=== PATIENT | female | born 1950 | race African-American/Black ===

== ENCOUNTER 2017-10-08 19:19 | Inpatient (IN) ==
[2017-10-08] MEDS ORDERED: 0.9 % Sodium Chloride 500 ML IVC ONE (19:28)
[2017-10-08] MEDS ORDERED: Nitroglycerin 0.4 MG TAB.SUBL SL ONE (19:28)
[2017-10-08] MEDS ORDERED: Isovue-370 500 ML INFUS..BTL IV ONE (19:29)
--- NOTE | 2017-10-08 19:34 | Emergency Department Note ---
Disposition Clinical Impression: Elevated troponin Chest pain Qualifiers: Chest pain type: unspecified Qualified Code(s): R07.9 - Chest pain, unspecified Back pain Qualifiers: Back pain location: thoracic back pain Chronicity: unspecified Back pain laterality: midline Qualified Code(s): M54.6 - Pain in thoracic spine Disposition: Admitted As Inpatient Condition: Fair General Adult HPI - General Chief complaint: ED Back Pain/Injury Stated complaint: Back Pain Time Seen by Provider: 10/08/17 19:23 Source: EMS Mode of arrival: ambulatory Limitations: no limitations Nursing Notes Reviewed: Yes Vital Signs Reviewed: Yes - History of Present Illness HPI Narrative: 66-year-old female history of hypertension, diabetes, ACS with stents in the past presents for evaluation of back pain. Patient states he has had back pain intermittently over the past couple weeks. Patient's also had intermittent anterior chest pain. States that the pain is worse with exertion. Patient was prompted to come to the ER tonight when her back pain did not improve. Notes it to be a dull pressure pain in her back. Denies any radiation of pain. Patient did state that she had some right arm pain yesterday. Reports some dyspnea and nonproductive cough. No fevers. Patient did have diaphoresis yesterday that she attributed to her blood sugar. Denies any abdominal pain. Reports that she takes a baby aspirin. Patient does state that she has has had some swelling in lower legs that is worse on the left than the right. Denies any recent travel. No history of DVTs or PEs. Pain Scale: 9 - Related Data Home Medications Medication Instructions Recorded Confirmed Atenolol 03/15/15 03/15/15 Levothyroxine 03/15/15 Metformin 03/15/15 Oxybutynin 03/15/15 Paroxetine 03/15/15 Previous Rx's Medication Instructions Recorded Insulin NPH/REG 70/30 (HUMAN) 20 unit SQ BIDAC #30 [id number] 04/06/15 [Humulin 70/30 Vial] Azithromycin [Azithromycin 6-Tab 250 mg PO PER PKG DI #6 tab 08/27/17 Pack] Benzonatate [Tessalon] 200 mg PO BID 7 Days #14 capsule 08/27/17 Fluticasone Propionate Nasal 50 mcg NS BID 7 Days #1 bottle 08/27/17 [Flonase] Allergies Allergy/AdvReac Type Severity Reaction Status Date / Time No Known Allergies Allergy Verified 03/15/15 18:18 All systems ED: reviewed and negative except as stated. Constitutional: Denies: fever Cardiovascular: Reports: chest pain Respiratory: Reports: cough, dyspnea Gastrointestinal: Denies: abdominal pain, nausea, vomiting Musculoskeletal: Reports: back pain Past Medical History - Past Medical History Source: patient Medical history: Reports: coronary artery disease, diabetes, hypertension, thyroid disease Surgical history: Reports: angioplasty/stent (stent x1 more than 5 years ago) Psychiatric history: Reports: no psych history MEASURING CLERK history: Reports: no MEASURING CLERK history - Social History Smoking Status: Never smoker Smokeless Tobacco Status: No Alcohol use: Reports: none Drug use: Reports: none Physical Exam - General Limitations: no limitations General appearance: alert, in no apparent distress, obese - Head Head exam: atraumatic, normocephalic, normal inspection - Eye Eye exam: Present: normal appearance, EOMI - ENT ENT exam: normal exam, mucous membranes moist - Neck Neck exam: Present: normal inspection, trachea midline - Chest Chest inspection: Present: normal inspection, symmetric chest wall rise - Respiratory Respiratory exam: Present: normal lung sounds bilaterally. Absent: respiratory distress - Cardiovascular Cardiovascular exam: Present: normal rhythm, tachycardia. Absent: systolic murmur - Abdominal Exam Abdominal exam: Present: soft, Non-Tender - Extremities Exam Extremities exam: Present: normal inspection, pedal edema (Trace) - Expanded Lower Extremity Exam Neurovascular/Tendon exam: Present: normal capillary refill. Absent: pulse deficit, motor deficit, sensory deficit - Back Exam Back exam: Present: normal inspection - Neurological Exam Neurological exam: Present: alert, oriented X3, CN II-XII intact - Skin Skin exam: Present: warm, dry, intact, normal color Course Course Narrative: Patient seen and examined. Patient will get basic cardiopulmonary screening evaluation. Given the patient's back pain as well as elevated blood pressure patient is a CT angiogram of the chest to evaluate aortic pathology. Patient will likely require admission given her history of ACS. - Reevaluation(s) Reevaluation #1: Patient states that her pain has improved. Patient received one sublingual nitroglycerin. Patient's blood pressure did decrease to a systolic pressure in the 140s. Patient's resting comfortably. Time: 20:12 Reevaluation #2: Patient's troponin came back elevated. Awaiting patient's CT Amparo chest x- ray there is no dissection or aortic pathology prior to initiating anticoagulation. Time: 20:18 - Consultations Consultation #1: Discussed the case with cardiology, Dr. Benavidez who agrees with plan of care and anticoagulation. Consult was placed. Time: 21:28 Vital Signs Temperature 99.2 F 10/08/17 19:22 Pulse Rate 102 10/08/17 19:22 Respiratory Rate 20 10/08/17 19:22 Blood Pressure 205/110 10/08/17 19:22 O2 Sat by Pulse Oximetry 93 10/08/17 19:22 Temperature 99.2 F 10/08/17 19:22 Pulse Rate 92 10/08/17 21:22 Respiratory Rate 20 10/08/17 21:22 Blood Pressure 198/83 10/08/17 21:22 O2 Sat by Pulse Oximetry 95 10/08/17 21:22 Oxygen Delivery Oxygen Delivery Room Air Medical Decision Making - MDM Narrative Medical decision making narrative: 66 show female history of hypertension, diabetes and ACS presents for evaluation of chest pain and back pain. Patient had a concerning history. Patient does have risk factors. Patient was hypertensive on exam and was given one nitroglycerin which improved her blood pressure as well as her pain. Patient's pain on initial arrival was in her back. Given the patient's history of back pain patient had a CT angios of the chest which showed notes a dissection or PE. Patient EKG shows no acute changes. Patient was heparinized that she has no concrete indications to heparin. Patient is also given aspirin. Patient's pain was controlled and the ED. Patient be admitted to hospital service for continued cardiopulmonary evaluation and treatment. Patient's blood pressure rebounded following nitroglycerin. Ultimately the patient was placed on nitro drip for blood pressure control. - Medical Records Medical records reviewed: Yes I reviewed the patient's medical records. Impressions: LVEF 60%. Normal LV chamber size, wall thickness and function. Mild left ventricular diastolic dysfunction. Normal right ventricular structure and function. No evidence of pulmonary hypertension. No significant valvular dysfunction. - Lab Data Lab results reviewed: Yes I reviewed the patient's lab results. Result diagrams: 10/08/17 19:36 10/08/17 19:36 Lab Results 10/08/17 10/08/17 10/08/17 Range/Units 19:30 19:36 19:36 WBC (4.3-11.1) K/mcL RBC (3.82-4.97) M/mcL Hgb (11.5-15.4) g/dL Hct (35.3-44.9) % MCV (83.0-100.0) fL MCH (28.0-33.3) pg MCHC (31.6-35.5) g/dL RDW (11.5-14.5) % Plt Count (140-400) K/mcL MPV (9.4-12.4) fL Immature Gran % (0-4) % Seg Neutrophils % % Lymphocytes % % Monocytes % % Eosinophils % % Basophils % % Neutrophils # (1.6-8.9) K/mcL Lymphocytes # (0.6-4.6) K/mcL Monocytes # (0.0-1.3) K/mcL Eosinophils # (0.0-0.6) K/mcL Basophils # (0.0-0.2) K/mcL PT 11.0 (9.4-12.1) Seconds INR 1.0 Sodium (136-145) mEq/L Potassium (3.5-5.1) mEq/L Chloride (98-107) mEq/L Carbon Dioxide (23-29) mEq/L BUN (8-23) mg/dL Creatinine (0.60-1.20) mg/dL Est GFR ( Amer) (> 60) Est GFR (Non-Af Amer) (> 60) BUN/Creatinine Ratio (6-26) Glucose (70-105) mg/dL Calculated Osmolality (280-300) Calcium (8.6-10.3) mg/dL Troponin I (< 0.04) ng/mL B-Natriuretic Peptide 56 (Less than 100) pg/mL Lipase 17 (11-82) Units/L 10/08/17 10/08/17 Range/Units 19:36 19:36 WBC 6.8 (4.3-11.1) K/mcL RBC 4.27 (3.82-4.97) M/mcL Hgb 13.7 (11.5-15.4) g/dL Hct 40.6 (35.3-44.9) % MCV 95.1 (83.0-100.0) fL MCH 32.1 (28.0-33.3) pg MCHC 33.7 (31.6-35.5) g/dL RDW 14.0 (11.5-14.5) % Plt Count 188 (140-400) K/mcL MPV 9.6 (9.4-12.4) fL Immature Gran % 0.6 (0-4) % Seg Neutrophils % 54.6 % Lymphocytes % 33.6 % Monocytes % 8.6 % Eosinophils % 2.0 % Basophils % 0.6 % Neutrophils # 3.7 (1.6-8.9) K/mcL Lymphocytes # 2.3 (0.6-4.6) K/mcL Monocytes # 0.6 (0.0-1.3) K/mcL Eosinophils # 0.1 (0.0-0.6) K/mcL Basophils # 0.0 (0.0-0.2) K/mcL PT (9.4-12.1) Seconds INR Sodium 138 (136-145) mEq/L Potassium 4.0 (3.5-5.1) mEq/L Chloride 105 (98-107) mEq/L Carbon Dioxide 26 (23-29) mEq/L BUN 13 (8-23) mg/dL Creatinine 1.18 (0.60-1.20) mg/dL Est GFR ( Amer) 56 L (> 60) Est GFR (Non-Af Amer) 46 L (> 60) BUN/Creatinine Ratio 11 (6-26) Glucose 189 H (70-105) mg/dL Calculated Osmolality 291 (280-300) Calcium 9.9 (8.6-10.3) mg/dL Troponin I 0.25 H* (< 0.04) ng/mL B-Natriuretic Peptide (Less than 100) pg/mL Lipase (11-82) Units/L - Radiology Data Radiology results reviewed: Yes I reviewed the patient's radiology results. Chest X-Ray 10/08/17 19:28 IMPRESSION: No acute process. D/ / Sammy Moctezuma MD / Sammy Moctezuma MD Interpreting Provider: Sammy Moctezuma MD Chest CTA 10/08/17 19:29 IMPRESSION: 1. No pulmonary embolism. 2. Peribronchial thickening and mild reticular opacities in the lingula and left lower lobe. Pattern may represent early pneumonitis. A viral infection may also be considered. D/ / Girma Kuhn MD / Girma Kuhn MD Interpreting Provider: Girma Kuhn MD - EKG Data EKG #1 EKG attestation: Yes I reviewed and interpreted this EKG. EKG shows normal: sinus rhythm Rate: normal Rhythm: NSR Interpretation: no acute changes, nonspecific ST-T wave changes S.Cristi - Kaye Situation: Demographics Background: Presenting Complaint Assessment: Vital Signs, Course and respsone to treatment, Patient/Family Expectation Recommendation: Barrier(s) to disposition, Recommendation based on pending studies, treatments, or consults Kaye Report Given to: Dr. Bita Restrepo Repor Time: 21:49 Attestation Statement - Attestation Attestation: I examined this patient and my medical decision-making was reviewed with the Resident Physician. I agree with the documented findings, disposition and treatment plan as described except to the extent set forth below. Findings consistent with NSTEMI. Consult cardiology, will admit for serial cardiac biomarkers and cardiac consultation.
[2017-10-08 19:43] LABS: Basophils % 0.6 %; Eosinophils # 0.1 K/mcL (0.0-0.6); Hematocrit 40.6 % (35.3-44.9); Hemoglobin 13.7 g/dL (11.5-15.4); Immature Granulocytes % 0.6 % (0-4); Lymphocytes # 2.3 K/mcL (0.6-4.6); Lymphocytes % 33.6 %; Mean Corpuscular HGB Conc 33.7 g/dL (31.6-35.5); Mean Corpuscular Hemoglobin 32.1 pg (28.0-33.3); Mean Corpuscular Volume 95.1 fL (83.0-100.0); Mean Platelet Volume 9.6 fL (9.4-12.4); Monocytes # 0.6 K/mcL (0.0-1.3); Monocytes % 8.6 %; Neutrophils # 3.7 K/mcL (1.6-8.9); Platelet Count 188 K/mcL (140-400); Red Blood Count 4.27 M/mcL (3.82-4.97); Segmented Neutrophils % 54.6 %
[2017-10-08 20:11] LABS: Calcium 9.9 mg/dL (8.6-10.3)
[2017-10-08 20:14] LABS: Troponin I 0.25 ng/mL (< 0.04)
[2017-10-08] MEDS ORDERED: Aspirin 81 MG TAB.CHEW PO ONE (21:29)
[2017-10-08] MEDS ORDERED: *HR* Heparin 5,000 UNIT/ML VIAL IVP ONE (21:29)
[2017-10-08] MEDS ORDERED: *HR* Heparin 5,000 UNIT/ML VIAL IVP PRN ×2 (21:29)
[2017-10-08] MEDS ORDERED: Heparin 25,000 UNIT/500 ML D5W 25,000 UNIT/500 ML BAG IVC SCH (21:30)
[2017-10-08] MEDS: Nitroglycerin 25 MG/250 ML INFUS..BTL IVC SCH (22:52)
[2017-10-08] MEDS ORDERED: Naloxone 0.4 MG/ML INJ IVP PRN (23:24)
[2017-10-08] MEDS ORDERED: Dextrose Gel 15 GM/37.5 ML TUBE PO PRN ×2 (23:26)
[2017-10-08] MEDS ORDERED: *HR* Dextrose 50 % in Water (Syg) 50 ML SYRINGE IVP PRN (23:26)
[2017-10-08] MEDS ORDERED: D5% in Water 1,000 ML IVC PRN (23:26)
--- NOTE | 2017-10-08 23:31 | Internal Med History&Physical ---
Date of Encounter: 10/09/17 Time of Encounter: 22:40 Internal Medicine - H&P: HPI Admitted From: Home Plans for Post Hospital Care: Home History of present illness: Ms. Malcolm is a 66 year old female Patient presented to the emergency room for back pain, and occasional sharp pains in her chest that have going on for the last week. 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 She also gets short of breath requiring taking a break in order to feel relief. She is also noticed increased swelling in her left lower leg that she has never had before either. She went and saw her primary care physician, who prescribed her Lasix. Yesterday she woke up with a racing heart, shortness of breath and back pain. She tried relaxing but the pain became worse as well as the shortness of breath. This afternoon pain returned, she checked her blood pressure which was high at home, she had a pinching sensation in her right arm with occasional sharp pains in her chest. Her family convinced her to go the hospital so she called an ambulance and was brought to the emergency room. In the emergency room patient had elevated troponin 0.25, CT angio negative for pulmonary embolism, chest x-ray was negative for acute process, EKG showed no acute changes. Cardiology was called and recommended heparin drip and was agreeable to see patient in the morning. Patient has a past medical history of stent placement about 10 years ago. A nitro drip was also started prior to her being transferred to medical floor. Currently patient is pain-free, blood glucose was drawn and was 70. She was given crackers, peanut butter and pudding. She otherwise had no complaints. Past Med Surg Social Fam HX - Past Medical History Medical history: coronary artery disease, diabetes, hypertension, thyroid disease Additional medical history: hypothyroidism Psychiatric history: no psych history - Past Surgical History Surgical History: angioplasty/stent - Social History Smoking Status: Never smoker Smokeless Tobacco Status: No Alcohol use: rarely Drug use: none - Family History Mother Family Member Ethnicity: Non- Living Status: Hx Family Cardiac Disorders: No Hx Family Respiratory Disorders: No Hx Family Cancer: No Hx Family GI Disorders: No Hx Family Genitourinary Disorders: No Hx Family Endocrine Disorder: No Hx Family Musculoskeletal Disorders: No Hx Family Neuromuscular Disorders: No Hx Family Neurologic Disorders: No Hx Family HEENT Disorders: No Hx Family Autoimmune Disorders: No Hx Family Reproductive Disorders: No Hx Family Psychosocial Disorders: No Hx Family Medical Disorders: Yes (DM) Internal Medicine - H&P: Meds 3 Allergy/AdvReac Type Severity Reaction Status Date / Time No Known Allergies Allergy Verified 03/15/15 18:18 All Systems PM: A 10-system review of systems was performed and is negative for pertinent findings except as documented above in the HPI. - Constitutional Vitals: Temp Pulse Resp BP Pulse Ox 98 F 89 16 175/81 95 10/08/17 22:37 10/08/17 22:37 10/08/17 22:37 10/08/17 22:37 10/08/17 23:15 General appearance: Present: cooperative, A&O X 3, pleasant, no acute distress, answers questions appropriately - Head Head exam: Present: normal inspection - Eye Eye exam: Present: EOMI Additional comments: Left eye scleral hematoma - Neck Neck exam general surgery: Present: full ROM - Respiratory Respiratory exam: Present: CTAB. Absent: chest wall tenderness, decreased breath sounds, respiratory distress, wheezes - Cardiovascular Cardiovascular exam: Present: RRR. Absent: diastolic murmur, systolic murmur - GI/Abdominal GI/Abdominal exam: Present: normal bowel sounds, soft. Absent: tenderness - Extremities Exam Extremities exam: Present: warm, radial pulses palpable and symmetrical. Absent : calf tenderness, tenderness - Neurological Exam Neurological exam: Present: no focal deficits, strengths equal and symetr throughout. Absent: motor sensory deficit, facial droop, speech deficit - Skin Skin exam: Present: dry, normal color, warm Internal Med - H&P Results - Labs CBC & Chem 7: 10/09/17 01:26 10/09/17 01:26 - Assessment and plan (1) Chest pain Current Visit: Yes Status: Acute Assessment and plan: Elevated troponin 0.25, chest pain resolved upon arrival to the emergency room. She has had no further sharp pains she had been experiencing at home. EKG showed no acute changes, with elevated troponin could consider NSTEMI. Continue to monitor troponins property assessment monitor Heparin drip started Nitro drip started Cardiology to see in the morning, as consulted from the ER. Qualifiers: Chest pain type: unspecified Qualified Code(s): R07.9 - Chest pain, unspecified (2) Shortness of breath Current Visit: Yes Status: Acute Assessment and plan: Now resolved. Could be related chest pain, lungs clear on exam. Continue to monitor O2 monitor Oxygen via nasal cannula as needed (3) Elevated troponin Current Visit: Yes Status: Acute Assessment and plan: 0.25 in the emergency room Continue to monitor with serial troponins (4) Back pain Current Visit: Yes Status: Acute Assessment and plan: Currently experiencing back pain, continue to monitor Pain medicine as needed Qualifiers: Back pain location: thoracic back pain Chronicity: unspecified Back pain laterality: midline Qualified Code(s): M54.6 - Pain in thoracic spine (5) Chronic kidney disease (CKD) Current Visit: Yes Status: Acute Assessment and plan: Acute on chronic kidney disease, GFR lower than normal on admission Fluid hydration Repeat labs in the morning. Qualifiers: Qualified Code(s): N18.3 - Chronic kidney disease, stage 3 (moderate) (6) Diabetes Current Visit: No Status: Chronic Assessment and plan: Patient's glucose 189 in the emergency room Continue to monitor Accu-Cheks before meals at bedtime Insulin sliding scale low-dose Qualifiers: Diabetes mellitus type: type 2 Diabetes mellitus complication status: without complication Qualified Code(s): E11.9 - Type 2 diabetes mellitus without complications; Z79.4 - halfway (current) use of insulin (7) DVT prophylaxis Current Visit: No Status: Acute Assessment and plan: Patient on heparin drip - Time Spent With Patient Total time spent is greater than 50% in coordination of care (as documented) at patient's floor/unit and/or counseling patient:
[2017-10-09 01:36] LABS: Hematocrit 37.6 % (35.3-44.9); Hemoglobin 12.8 g/dL (11.5-15.4); Mean Corpuscular Hemoglobin 32.2 pg (28.0-33.3); Mean Corpuscular Volume 94.5 fL (83.0-100.0); Mean Platelet Volume 9.5 fL (9.4-12.4); Platelet Count 192 K/mcL (140-400); Red Blood Count 3.98 M/mcL (3.82-4.97)
[2017-10-09 02:03] LABS: BUN/Creatinine Ratio 14 (6-26); Blood Urea Nitrogen 13 mg/dL (8-23); Calcium 9.6 mg/dL (8.6-10.3); Carbon Dioxide 27 mEq/L (23-29); Chloride 107 mEq/L (98-107); Glucose 86 mg/dL (70-105); Osmolality,Calculated 289 (280-300); Potassium 3.5 mEq/L (3.5-5.1); Sodium 140 mEq/L (136-145); eGFR For Non-African Americans > 60 (> 60)
[2017-10-09] MEDS: Insulin LISPRO 300 UNITS/3 ML VIAL SQ SCH ×3 (07:40→17:31)
[2017-10-09] MEDS ORDERED: Acetaminophen 325 MG TABLET PO PRN ×2 (08:28→23:53)
--- NOTE | 2017-10-09 08:37 | Cardiology Consult Note ---
Date of Encounter: 10/09/17 Time of Encounter: 08:15 Assessment and Plan (1) NSTEMI (non-ST elevated myocardial infarction) Current Visit: Yes Status: Acute Pt has a 2 week history of chest pain on exertion -troponins (+) 0.25 ---> 0.27 ---> 0.17, trending down, in setting of accelerated HTN/possible early pneumonia, this is possible a type 2 cardiac insult. NSTEMI vs demand ischemia -EKG showed no changes initially , no ischemia -second EKG showed T wave inversion v5 and v6 (new), I & aVL (seen in October 05 EKG as well). -CXR showed no acute cardiopulmonary process -CT scan showed possible early pneumonia, clinically stable at this time. Afrebrile. Doesn't c/o cough, sputum production, or fevers/chills -s/p stent 10 yrs ago Plan: -Started Heparin drip -on Nitro drip running at 9mL/hr -Started Artorvastatin 40mg PO daily, ASA 81 mg PO daily, Metoprolol 12.5mg BID -Hydralazine 10mg q6hr for SBP >160 -limited ECHO for today, last ECHO was 10/05/17 - LVEF is 60%, normal LV chamber , normal RV fxn, no pHTN, no valvular dysfxn -ERNIE score - 5, will discuss with Attending if this patient would benefit from [facility]. (2) Shortness of breath Current Visit: Yes Status: Acute Pt reports SOB for the last two weeks -dyspnea on exertion - cannot walk from parking lot to inside store or up one flight of stairs w/o needing to catch her breath -PND, cannot lay flat during exam without c/o SOB -pt states she has "swollen belly/face and leg swelling" -CXR at this time shows no acute cardiopulmonary process -CT scan showed possible early pneumonia, although pt is clinically stable, afebrile, and denies cough/sputum production Plan: -Will benefit from Lasix IV 40mg daily, as pt is quite edematous -2L fluid restriction -strict I&O's (3) Coronary artery disease Current Visit: No Status: Chronic Pt has hx of PCI 10 yrs ago Plan -see above for plan -ASA, statin, beta killian -recommend heart healthy low fat, low cholesterol diet Qualifiers: Coronary Disease-Associated Artery/Lesion type: unspecified vessel or lesion type [place] vs. transplanted heart: [place] heart Associated angina: with unstable angina Qualified Code(s): I25.110 - Atherosclerotic heart disease of [place] coronary artery with unstable angina pectoris Discussion w patient/family: The assessment and plan as outlined above was discussed with the patient and/or family members who expressed understanding and agreement. All questions were answered. Thank you for involving us in the care of your patient. Please call with any questions. History of Present Illness Consult date: 10/08/17 Requesting physician: Bhupendra Powers Consult reason: Chest pain Chief complaint: "chest pain and shortness of breath" History of present illness: Ms. Malcolm is a 66 year old female who came to the ER yesterday with c/o back pain located in the upper back, sharp pain in the chest, and shortness of breath. She states that she has been "having trouble" with chest pain and her breathing over the last 2 weeks. The pain has come and gone over the last two weeks but yesterday from about 5:30/6 until 7pm she was having "dull pain that was like someone punching her in the back." This pain was rated as an 8/10, however, she is currently not in any pain. The patient complained of a "pinching" sensation in her right arm that was associated with her chest pain, however, this pain was similar to the pain she experienced before she got her stent 10 yrs ago. The patient had palpiltations over the last few days as well and associates some palpiltations with the pain she felt yesterday. She was at a family reunion when the chest pain was at its worst and states that she wasn't "able to cook" for the reunion because any activity made the SOB worse. She states that activity increases her SOB and chest pain. She is unable to walk up a flight of stairs and walking from the parking lot to inside a grocery store makes her SOB to the point that she has to rest. The patient is unable to lay down fully on her back and complains of dyspnea when I ask her to lay on her back for a PE. The patient states that she has left leg swelling. This started two weeks ago. She was directed to take extra water pills for it and then to cut back to 1x a day of her triamterene/HCTZ after the swelling ceased. She still c/o swelling in her leg, abdomen, and face and states she is usually not so bloated feeling or swollen. She denies any redness or tenderness of the left leg, there are no open wounds, and the leg doesn't appear to have any s/s of infxn. In the ED, the patient had a CXR which showed no acute cardiopulmonary process. The CT scan showed possible early pneumonia. She was started on heparin drip and nitroglycerin. Fluids - none Electrolytes - all WNL Nutrition - NPO currently DVT prophylaxis - Heparin drip GI prophylaxis - not indicated Past Med Surg Social Fam HX - Past Medical History Medical history: coronary artery disease, diabetes, hypertension, thyroid disease Additional medical history: hypothyroidism Psychiatric history: no psych history - Past Surgical History Surgical History: angioplasty/stent - Social History Smoking Status: Never smoker Smokeless Tobacco Status: No Alcohol use: rarely Drug use: none - Family History Mother Family Member Ethnicity: Non- Living Status: Hx Family Cardiac Disorders: No Hx Family Respiratory Disorders: No Hx Family Cancer: No Hx Family GI Disorders: No Hx Family Genitourinary Disorders: No Hx Family Endocrine Disorder: No Hx Family Musculoskeletal Disorders: No Hx Family Neuromuscular Disorders: No Hx Family Neurologic Disorders: No Hx Family HEENT Disorders: No Hx Family Autoimmune Disorders: No Hx Family Reproductive Disorders: No Hx Family Psychosocial Disorders: No Hx Family Medical Disorders: Yes (DM) Medications and Allergies Albuterol Sulfate [Ventolin Hfa] 2 puff IH Q6H 10/09/17 [History] Aspirin [Lo-Dose Aspirin EC] 81 mg PO DAILY 10/09/17 [History] Cyclobenzaprine [Flexeril] 10 mg PO TID 10/09/17 [History] Furosemide [Lasix] 20 mg PO DAILY 10/09/17 [History] Gabapentin [Neurontin] 300 mg PO BID 10/09/17 [History] Insulin Regular, Human [Humulin R U-500 Kwikpen] 0 unit SQ BID 10/09/17 [History ] Levothyroxine [Synthroid] 50 mcg PO DAILY 10/09/17 [History] Omeprazole [PriLOSEC] 20 mg PO DAILY 10/09/17 [History] Oxybutynin [Ditropan] 5 mg PO BID 10/09/17 [History] PARoxetine HCl [Paroxetine HCl] 40 mg PO DAILY 10/09/17 [History] Simvastatin [Zocor] 40 mg PO HS 10/09/17 [History] Triamterene/HCTZ 37.5/25mg [Dyazide] 1 each PO DAILY 10/09/17 [History] metFORMIN [Glucophage] 500 mg PO BIDWM 10/09/17 [History] 3 Allergy/AdvReac Type Severity Reaction Status Date / Time No Known Allergies Allergy Verified 03/15/15 18:18 All Systems Review: The remainder of the systems were reviewed and are negative - Constitutional Constitutional: headache(s), no chills, no fatigue, no fever(s), no stops breathing during sleep, no weight gain - Cardiovascular Cardiovascular: chest pain with exertion, dyspnea at rest, dyspnea on exertion, leg edema, palpitations, paroxysmal nocturnal dyspnea, no diaphoresis, no syncope - Respiratory Respiratory: no cough, no hemoptysis, no wheezing - Gastrointestinal Gastrointestinal: no abdominal pain, no diarrhea, no nausea - Genitourinary Genitourinary: no dysuria, no hematuria - Musculoskeletal Musculoskeletal: arthralgias, back pain - Integumentary Integumentary: no erythema, no rash - Neurological Neurological: no dizziness, no loss of vision, no numbness, no syncope Physical Examination Vital Signs, Last 4 Hours Temp Pulse Resp BP Pulse Ox 10/09/17 07:14 97.4 F L 86 18 173/84 93 General: No Apparent Distress HEENT: Atraumatic Neck: No JVD Cardiac: Normal S1 and S2, Other (tacycardic) Lungs: Normal Breath Sounds Neuro: Alert and responsive, No focal deficits noted Abdomen: Soft Skin: No rashes noted on visualized skin Musculoskeletal: No Chest Wall Tenderness Extremities: Normal Pulses, Other (B/L LE edema) Results 10/09/17 01:26 10/09/17 01:26 Lab Results 10/09/17 10/09/17 10/09/17 01:26 01:26 01:26 WBC 6.9 Hgb 12.8 Hct 37.6 Plt Count 192 Sodium 140 Potassium 3.5 Chloride 107 Carbon Dioxide 27 BUN 13 Creatinine 0.92 Glucose 86 Calcium 9.6 Troponin I 0.27 H* 10/09/17 07:29 WBC Hgb Hct Plt Count Sodium Potassium Chloride Carbon Dioxide BUN Creatinine Glucose Calcium Troponin I 0.17 H* Consult Discharge Plan - Plan Referrals: Polina Blake CNP [Primary Care Provider] -
--- NOTE | 2017-10-09 08:52 | Cardiology Consult Note ---
Date of Encounter: 10/09/17 Time of Encounter: 08:51 Assessment and Plan Discussion w patient/family: The assessment and plan as outlined above was discussed with the patient and/or family members who expressed understanding and agreement. All questions were answered. Thank you for involving us in the care of your patient. Please call with any questions. History of Present Illness Consult date: 10/09/17 Requesting physician: Korey Sunshine Consult reason: Chest pain and shortness of breath Chief complaint: Back pain History of present illness: Ms. Malcolm is a 66 year old female Past Med Surg Social Fam HX - Past Medical History Medical history: coronary artery disease, diabetes, hypertension, thyroid disease Additional medical history: hypothyroidism Psychiatric history: no psych history - Past Surgical History Surgical History: angioplasty/stent - Social History Smoking Status: Never smoker Smokeless Tobacco Status: No Alcohol use: rarely Drug use: none - Family History Mother Family Member Ethnicity: Non- Living Status: Hx Family Cardiac Disorders: No Hx Family Respiratory Disorders: No Hx Family Cancer: No Hx Family GI Disorders: No Hx Family Genitourinary Disorders: No Hx Family Endocrine Disorder: No Hx Family Musculoskeletal Disorders: No Hx Family Neuromuscular Disorders: No Hx Family Neurologic Disorders: No Hx Family HEENT Disorders: No Hx Family Autoimmune Disorders: No Hx Family Reproductive Disorders: No Hx Family Psychosocial Disorders: No Hx Family Medical Disorders: Yes (DM) Medications and Allergies 3 Allergy/AdvReac Type Severity Reaction Status Date / Time No Known Allergies Allergy Verified 03/15/15 18:18 All Systems Review: The remainder of the systems were reviewed and are negative Physical Examination Vital Signs, Last 4 Hours Temp Pulse Resp BP Pulse Ox 10/09/17 07:14 97.4 F L 86 18 173/84 93 Results 10/09/17 01:26 10/09/17 01:26 Lab Results 10/09/17 10/09/17 10/09/17 01:26 01:26 01:26 WBC 6.9 Hgb 12.8 Hct 37.6 Plt Count 192 Sodium 140 Potassium 3.5 Chloride 107 Carbon Dioxide 27 BUN 13 Creatinine 0.92 Glucose 86 Calcium 9.6 Troponin I 0.27 H* 10/09/17 07:29 WBC Hgb Hct Plt Count Sodium Potassium Chloride Carbon Dioxide BUN Creatinine Glucose Calcium Troponin I 0.17 H* Consult Discharge Plan - Plan Referrals: Polina Blake CNP [Primary Care Provider] -
[2017-10-09] MEDS ORDERED: Furosemide 40 MG/4 ML VIAL IVP ONE (09:18)
[2017-10-09] MEDS: Aspirin 81 MG TAB.CHEW PO SCH (09:19)
[2017-10-09] MEDS ORDERED: Nitroglycerin 1,000 MCG/10 ML VIAL IV ONE (13:00)
[2017-10-09] MEDS ORDERED: ISOVUE-370 200 ML INFUS..BTL IV ONE (13:00)
[2017-10-09] MEDS ORDERED: *HR* Heparin 10,000 UNIT/10 ML VIAL ONE (13:00)
[2017-10-09] MEDS ORDERED: 0.9 % Sodium Chloride 1,000 ML ONE (13:00)
[2017-10-09] MEDS ORDERED: Heparin 1,000 UNITS/500 mL 500 ML ONE (13:00)
--- NOTE | 2017-10-09 13:12 | Pre-Sedation Evaluation ---
Pre-sedation evaluation - Pre-sedation checklist Date of procedure: 10/09/17 Procedure: C Recent Vitals: Last Vital Signs Temp 97.7 F 10/09/17 11:45 Pulse 84 10/09/17 11:45 Resp 18 10/09/17 11:45 BP 147/71 10/09/17 11:45 Pulse Ox 95 10/09/17 11:45 ASA Classification *see protocol: CLASS II-Mild systemic disease Cardiac Registry (Cardio Only) - Functional Capacity Functional Capacity: >=4 METS with symptoms - Clincal Frailty Scale Clinical Frailty Scale: Managing Well
[2017-10-09] MEDS ORDERED: *HR* FentaNYL (PF) 100 MCG/2 ML VIAL ONE (13:37)
[2017-10-09] MEDS ORDERED: *HR* Midazolam HCl 2 MG/2 ML VIAL ONE (13:37)
--- NOTE | 2017-10-09 14:31 | Invasive Diagnostic Lab Proc ---
Name: Marva Malcolm Date of Study: 10/09/2017 Date: 1950 Ht: 63.0in Medical Record#: [id number] Age: 66 Wt: 244.71lb Gender: Female BSA: 2.11 Order #: [id number] BMI: 43.36 Physicians Procedure Physician: Abel Young MD Referring MD: Shawn Torres MD, [facility] Referring MD: Staff Name Position Time In Selina Gonzales RN Monitor 01:14 PM Tracy Hoffman RN Monitor 01:14 PM Tiffani Joseph RT (R) Scrub 01:14 PM Maritza Pink RN Collar Tacker 01:14 PM Indications Indication Non-Stemi Procedures Performed Procedure L HRT ARTERY/VENTRICLE ANGIO Pre-Procedure Checklist Informed consent is complete signed and on chart. H&P is on chart. ID band is on and ID verified with patient. Patient NPO for procedure The procedure was described for the patient and questions were answered. Blood Pressure: 192/103 ECG is on chart. Rhythm: NSR Plan of Care Patient will tolerate the procedure without complications. Adequate level of comfort will be maintained. Hemodynamics will remain stable Patient will recover from procedure without complications. Respiratory function will be maintained. Cardiac rhythm will remain stable. Patient temperature will be maintained. Patient and/or family have verbalized understanding of the procedure. Patient Education Chief Complaint/Reason for Test: Cardiac Cath Developmental Category: Geriatric (65+ years) Developmentally Appropriate for Age: Yes Learning Barriers: None Education Needs: Procedure Education Method: Verbal Information Taught: Cardiac Cath Educational Evaluation: Able to repeat information Intravenous Access Time IV Size Location DC'd Fluid/Drip Rate Units RN 01:12 PM 20g 1 1/4" Patent On Arrival Lt Arm 0.9NaCl ml/hr Maritza Pink RN Allergies NKDA NO KNOWN DRUG ALLERGIES No Known Allergies Vital Signs Time BP (mmHg) HR (bpm) O2 Sat. RR (bpm) LOC 01:13 PM 173 / 84 86 93 % 18 5 = Fully awake and oriented or at pre-proc level 01:35 PM / % 5 = Fully awake and oriented or at pre-proc level 01:35 PM / % 4 = Oriented but drowsy 01:37 PM 192 / 103 96 97 % 15 01:42 PM 182 / 98 87 96 % 12 01:47 PM 170 / 95 86 98 % 13 01:52 PM 181 / 100 91 100 % 17 01:57 PM 182 / 92 93 100 % 15 02:02 PM 183 / 100 97 100 % 14 Procedural Medications Time Medication Dose Units Method Given By 01:35 PM Oxygen 2 L/min nasal cannula Maritza Pink RN 01:38 PM Versed 1 mg Intravenous Selina Gonzales RN 01:38 PM Fentanyl 50 mcg Intravenous Selina Gonzales RN 01:50 PM Lidocaine 2% 10 ml Subcutaneous Abel Young MD ASA Classification: CLASS II- Mild systemic disease (i.e. well-controlled diabetes, hypertension, asthma, cigarette smoking) Martha Score Preprocedure Postprocedure Activity 2- Moves 4 extremities sustained head lift Activity 2- Moves 4 extremities sustained head lift Circulation 2- SBP +/= 20 points of pre-anesthetic level Circulation 2- SBP +/= 20 points of pre-anesthetic level Consciousness 2- Awake and alert oriented x 3 Consciousness 2- Awake and alert oriented x 3 O2 Saturation 2- Able to maintain O2 satruation of 92% on room air O2 Saturation 2- Able to maintain O2 satruation of 92% on room air Respiratory 2- Able to deep breathe and cough well Respiratory 2- Able to deep breathe and cough well Total Score 10 Total Score 10 Contrast Agent: Isovue Diagnostic Contrast: 51 ml Total Contrast: 51 ml Fluoro Dose: 6399 mGy Procedure Log Time Note Enter By 01:14 PM Selina Gonzales RN Position: Monitor [facility]: [facility] Tracy Hoffman RN Position: Monitor Time in: 13:14 [facility] 01:14 PM Tiffani Joseph RT (R) Position: Scrub [facility]: [facility] Maritza Pink RN Position: Collar Tacker [facility]: [facility] 01[facility]32 PM 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 well-controlled diabetes, hypertension, asthma, cigarette smoking) [facility] :34 PM Meet and greet completed :34 PM Sign in performed according to hospital policy. :34 PM Procedure start 13:34 :35 PM Time: 13:35 Patient comfortable and pain free: Yes :35 PM Time: 13:35LOC: 5 = Fully awake and oriented or at pre-proc level :35 PM Time: 13:35 Oxygen on at 2 L/min per nasal cannula by Maritza Pink RN saihilda 01:36 PM CathStat 01:36 PM Case Start 01:36 PM Vitals capture started with the following parameters, Patient=Adult, Interval=5 min, Initial Diefcrtc=489 mmHg, Deflation Rate=5 mmHg, Cuff placed on Right Arm 01:36 PM Pressure channel 1 zeroed. 01:37 PM Hair removed from procedure site in holding area using clippers. Bilateral groin prepped with Chloraprep by Maritza Pink RN, then patient was draped. Skin intact. 01:37 PM HR=96 bpm, TGVC=949/103 mmhg, SpO2=97.0 %, Resp=15 B/min, EtCO2=41 mmHg, Comment=nsr 01:38 PM Time: 13:38 Versed 1 mg Intravenous Given by Selina Gonzales RN saihilda 01:38 PM Time: 13:38 Fentanyl 50 mcg Intravenous Given by Selina Gonzales RN saihilda 01:40 PM Recorded ECG: HR=94 Condition=Condition 1 01:42 PM HR=87 bpm, YKTZ=714/98 mmhg, SpO2=96.0 %, Resp=12 B/min, EtCO2=38 mmHg, Comment=nsr 01:45 PM Pressure channel 1 zeroed. 01:45 PM Ashleigh WHITMAN stopped heparin drip in room prior to procedure in recyclable materials distributor. 01:46 PM Clinical Presentation: Non-STEMI [facility] 01:47 PM HR=86 bpm, ZXCM=426/95 mmhg, SpO2=98.0 %, Resp=13 B/min, EtCO2=43 mmHg, Comment=nsr 01:49 PM Pressure channel 1 zeroed. 01:49 PM Pressure channel 1 zero failed. 01:50 PM Time: 13:35LOC: 4 = Oriented but drowsy 01:50 PM Time: 13:35 Patient comfortable and pain free: Yes 01:50 PM Time out performed according to hospital policy :51 PM Time: 13:50 10 ml Lidocaine 2% to right groin Subcutaneous Given by Abel Young MD hilda :51 PM Micro-Introducer Kit utilized for sheath placement 01:51 PM hand injected 3ml of contrast to right groin 01:51 PM Access obtained by percutaneous puncture. 6Fr 10cm Terumo [place] sheath placed in right Femoral artery. [id number] 01:52 PM HR=91 bpm, IKMN=834/100 mmhg, PfC5=695.0 %, Resp=17 B/min 01:52 PM 5Fr FR 4 catheter inserted over the wire [facility] :52 PM 0.035 145cm Navilyst 3mmJ wire [id number] 01:52 PM wire removed 01:53 PM RCA angiography performed in multiple views. 01:53 PM Recorded Pressure: Ao, HR=93, Condition=Condition 1 (Aorta) Ao 177/106/138 01:53 PM Coronary Dominance: right 01:54 PM Catheter removed 01:54 PM 5Fr FL 4 catheter inserted over the wire [facility] 01:55 PM LCA angiography performed in multiple views. 01:55 PM Recorded Pressure: Ao, HR=91, Condition=Condition 1 (Aorta) Ao 147/79/104 01:57 PM HR=93 bpm, VEOM=473/92 mmhg, TtL1=863.0 %, Resp=15 B/min, Comment=nsr 01:59 PM Catheter removed 01:59 PM 5Fr Pigtail catheter inserted over the wire [facility] 01:59 PM Catheter selectively placed in left ventricle [facility] 02:01 PM Recorded Pressure: LV, HR=97, Condition=Condition 1 (Left Ventricle) LV 166/33/39 02:01 PM Recorded Pressure: LV, Ao, HR=96, Condition=Condition 1 (Left Ventricle) LV 167/34/34, (Aorta) Ao 170/104/133 02:02 PM no injection, pressures obtained. tsoummers 02:02 PM HR=97 bpm, DYCM=140/100 mmhg, XlU3=292.0 %, Resp=14 B/min, Comment=nsr 02:02 PM Catheter removed tsoummers 02:02 PM Procedure completed at 14:02 10/09/2017 [email or web address] 02:02 PM Did you address ERNIE flow and Dominance? Yes tsoummers 02:03 PM Sign out completed: Radiation Dose 565.88 mGy, 6399.18 cGy/cm2 Fluoro Time: 2.1 Isovue 370 - 200ml contrast 51 ml given by Abel Young MD. Complications: NoneCardiac Rehab Consult needed: NoConfirmed administered medications: Yes tsoummers 02:04 PM Arterial sheath pulled, Angio-seal closure device used and was Successful [id number] S/N. tsoummers 02:04 PM Estimated Blood Loss: minimal tsoummers 02:04 PM Post ECG NSR tsoummers 02:04 PM Post Blood Pressure 183/100 tsoummers 02:05 PM 14:04 Post Pulses Bilateral DP & PT 2+ tsoummers 02:05 PM Information taught Cardiac Cath and Angioseal tsoummers 02:05 PM Education needs Procedure, Plan of Care, and Responsibilities of Patient in Care tsoummers 02:05 PM Learning barriers :None tsoummers 02:05 PM Education Methods Verbal tsoummers 02:05 PM Education evaluation Able to repeat information tsoummers 02:05 PM Site status No bleeding/hematoma - Rt Groin as reported by Tiffani Joseph RT (R) at 14:05 tsoummers 02:05 PM Opsite applied tsoummers 02:06 PM Family placed in consult room. tsoummers 02:06 PM Plavix, Effient or Brilinta given No tsoummers 02:06 PM Delay to floor No tsoummers 02:08 PM Lesion found in Distal Circumflex. Pre Stenosis: 25 Pre ERNIE Flow: tsoummers 02:08 PM Circumflex, Obtuse Marginal, Left Posterior Descending, and Left Posterolateral Coronary Arteries with 25 % stenosis. tsoummers 02:24 PM Patient out of room: 14:24 dwayne 02:25 PM Report given to lily WHITMAN Pt taken to 2ne14:24 dwayne Complications Complication None Hemodynamics Pressures Site Systolic/A Wave Diastolic/V Wave Mean AO 177 106 138 AO 147 79 104 LV 166 33 39 LV 167 34 34 AO 170 104 133 Post Procedure Information Blood Pressure: 183/100 mmHg Rhythm: NSR Post procedural instructions were given Closure Device Time Device Success/Fail 10/09/2017 2:04:00 PM Angio-Seal VIP Successful Site Checks Time Location Status Staff Sheath In? Note 02:05 PM Rt Groin No bleeding/hematoma Tiffani Joseph RT (R) Pulses Time Site Pre-Procedure Post-Procedure Note 10/09/2017 1:13:00 PM Bilateral DP & PT 2+ 2:04:00 PM Bilateral DP & PT 2+ Updated by Selina Gonzales RN on 10/09/2017 2:25:34 PM electronically signed on 10/09/2017 2:26:22 PM with status of Final
--- NOTE | 2017-10-09 17:15 | Electrocardiograph Report ---
[address] [place], [place] [address] Test Date: 2017-10-09 Pat Name: Marva Malcolm Department: 111 Room: 2NE24 Gender: F Director Institution: [facility] : 1950 Requested By: Zhao Syed Order Number: [id number] Reading MD: Danae Benavidez Measurements Intervals Ruth Rate: 93 P: 61 FL: 156 QRS: -4 QRSD: 104 T: 113 QT: 363 QTc: 413 Interpretive Statements SINUS RHYTHM ST DEVIATION AND MODERATE T-WAVE ABNORMALITY, CONSIDER LATERAL ISCHEMIA Electronically Signed On 10-09-2017 17:13:31 EDT by Danae Benavidez
--- NOTE | 2017-10-09 17:20 | Electrocardiograph Report ---
[place] [address] Test Date: 2017-10-08 Pat Name: Marva Malcolm Department: 103 Room: 2NE24 Gender: F Machine Adjuster: JEFF : 1950 Requested By: Blake Mensah Order Number: [id number] Reading MD: Danae Benavidez Measurements Intervals [place] Rate: 98 P: 60 NH: 154 QRS: -3 QRSD: 93 T: 73 QT: 362 QTc: 417 Interpretive Statements SINUS RHYTHM WITH OCCASIONAL VENTRICULAR PREMATURE COMPLEXES NONSPECIFIC ST-WAVE ABNORMALITY Electronically Signed On 10-09-2017 17:18:31 EDT by Danae Benavidez
--- NOTE | 2017-10-09 17:41 | Internal Med Progress Note ---
<Renettamarco antoniokanchankathiaAmbika Malika - Last Filed: 10/09/17 18:00> Hospitalist Progress Note - Encounter Date of Encounter: 10/09/17 Time of Encounter: 11:30 - Subjective Interval History: Marva howard is a 66 yr old female who presented on due to back pain, intermittent anterior chest pain that is worse with exertion for past week. Also complained of dyspnea, non productive cough and swelling in the legs. History significant for HTN, diabetes, coronary artery disease with stents placed 10 years ago. She was evaluated with CT angio which was negative for PE or dissection. Elevated troponin of 0.25, then 0.27, then 0.17. Chest x-ray was negative for acute process, EKG showed nonspecific ST-T wave changes. Sublingual nitro resolved chest pain, also given aspirin. Cardio was consulted in ED and heparin and nitro drips were started. Vitals in ED were 99.2, HR 102 , RR 20, BP 205/110, SpO2 93. Today, 10/09/17 patient seen and examined at bedside. She states that she is feeling better with chest and back pain. She admits to shortness of breath when laying down as well as during exertion. She denies chest pain, pleuritic chest pain, head ache, dizziness, vision changes, abdominal pain, calf pain, diarrhea, constipation, nausea, vomiting, diaphoresis. She is currently NPO for possible heart cath later today. - Exam Vitals: Temp Pulse Resp BP Pulse Ox 97.8 F 92 20 164/90 96 10/09/17 15:36 10/09/17 15:36 10/09/17 15:36 10/09/17 15:36 10/09/17 15:36 Exam: General: Alert and orientated X3, no apparent distress, resting comfortably, answers questions appropriately HEENT: normocephalic, atraumatic, EOMI, no cervical lymphadeopathy, no carotid bruits Cardio: RRR, no murmurs, rubs or gallops, normal S1, S2 Pulm: clear to auscultation bilaterally, no wheezes, rales or rhonchi Abdomen: Normal bowel sounds in all 4 quadrants, soft, non tender, non distended , no rebound, guarding or rigidity Extremities: 1+ non pitting edema bilaterally. 2+ radial and dorsal pedis pulses Neuro: Cn 2-12 grossly intact, Motor grossly intact. - Assessment and Plan (1) NSTEMI (non-ST elevated myocardial infarction) Current Visit: Yes Status: Acute Assessment and Plan: Elevated troponins, 0.25 down to 0.27 down to 0.17 Shortness of breath, intermittent chest pain on exertion EKG in ED showed non specific ST-T changes, follow up EKG showed T wave inversion V5 and V6 which is new. Demand ischemia vs NSTEMI vs pleurisy ERNIE score 5 Continue heparin drip, Nitro drip Started atorvastatin, aspirin, metoprolol Left heart cath performed: mild one vessel coronary artery disease and previously placed stent in LAD patent. Cardio recs: aggressive risk factor modification and optimal medical therapy (2) Shortness of breath Current Visit: Yes Status: Acute Assessment and Plan: Occurs on exertion, non productive cough. 1+ non pitting edema on exam Lasix started by cardio and recommend fluid restriction with strict Is and O s. (3) CAD (coronary artery disease) Current Visit: No Status: Chronic Assessment and Plan: Hx of CAD and stent in LAD about 10 years ago currently on aspirin and statin (4) Back pain Current Visit: Yes Status: Acute Assessment and Plan: Thoracic back pain, midline Acetaminophen PRN (5) Essential hypertension Current Visit: Yes Status: Acute Assessment and Plan: Hydralazine to decrease blood pressure, currently 164/90 (6) Diabetes Current Visit: No Status: Chronic Assessment and Plan: Continue sliding scale insulin Hold metformin (7) Chronic kidney disease (CKD) Current Visit: Yes Status: Acute Assessment and Plan: Acute on chronic stage 3 CKD Continue to monitor BUN, Cr, GFR DVT Prophylaxis: Heparin drip - Time Spent with Patient Total time spent is greater than 50% in coordination of care (as documented) at patient's floor/unit and/or counseling patient: Greater than 35 minutes Plan of Care Discussed with: patient Internal Medicine: Result - Labs CBC & Chem 7: 10/09/17 01:26 10/09/17 01:26 Labs: Short CBC 10/09/17 Range/Units 01:26 WBC 6.9 (4.3-11.1) K/mcL Hgb 12.8 (11.5-15.4) g/dL Hct 37.6 (35.3-44.9) % Plt Count 192 (140-400) K/mcL BMP 10/09/17 01:26 Sodium 140 Potassium 3.5 Chloride 107 Carbon Dioxide 27 BUN 13 Creatinine 0.92 Glucose 86 Calcium 9.6 Cardiac Enzymes 10/09/17 10/09/17 Range/Units 01:26 07:29 Troponin I 0.27 H* 0.17 H* (< 0.04) ng/mL - ABG Interpretation ABG results: PT/INR, D-dimer PT 11.0 Seconds (9.4-12.1) 10/08/17 19:30 - Impressions Impressions Echocardiogram Limited Views 10/09/17 08:02 Impressions: LVEF 60-65%. Mild increase in LV wall thickness. Normal right ventricular structure and function. Left Ventricular Wall Motion: Rest Echo Findings All wall segments showed normal motion. Findings: Study Quality * Technically adequate exam. ECG Findings * Normal sinus rhythm. Left Ventricle * LVEF 60-65%. * Normal LV chamber size. * Mild increase in LV wall thickness. Right Ventricle * Normal right ventricular structure and function. Left Atrium * Normal left atrial size. Right Atrium * Normal right atrial size. Consult Discharge Plan - Plan Referrals: Polina Blake CNP [Primary Care Provider] - <Carina Torrez - Last Filed: 10/09/17 22:31> Hospitalist Progress Note - Encounter Date of Encounter: 10/09/17 - Exam Vitals: Temp Pulse Resp BP Pulse Ox 97.8 F 92 20 164/90 96 10/09/17 15:36 10/09/17 15:36 10/09/17 15:36 10/09/17 15:36 10/09/17 15:36 - Assessment and Plan (1) Shortness of breath Current Visit: Yes Status: Acute (2) NSTEMI (non-ST elevated myocardial infarction) Current Visit: Yes Status: Acute (3) Coronary artery disease Current Visit: No Status: Chronic - Summary of Assessment and Plan Summary of Assessment and Plan: I examined this patient and my medical decision-making was reviewed with the Resident Physician. I agree with the documented findings, disposition and treatment plan as described except to the extent set forth below. Patient still having c/o SOB and chest pain. She localizes to left pectoral region and also left thoracic region. On physical exam she is in no acute distress, lungs are clear. She has trace to 1+ bipedal edema. HR normal. Vital signs reviewed. Troponin decreased from 0.25 to 0.17. 1. NSTEMI 2. Chest pain - NSTEMI vs pleuritis/pneumonitis/pneumonia (viral or bacterial). Afebrile, normal WBC, no sputum production. CTA neg for PE 3. Edema 4. CAD 5. DM 6. CKD - Cardiology consulted, recommendations appreciated. NPO incase patient to get LHC today - Continue Heparin drip, nitro drip - Lasix as tolerated - ISS, diabetic diet when able for food - Renally dose all medications. Repeat BMP in AM. - Time Spent with Patient Total time spent is greater than 50% in coordination of care (as documented) at patient's floor/unit and/or counseling patient: Internal Medicine: Result - Labs CBC & Chem 7: 10/09/17 01:26 10/09/17 01:26 - ABG Interpretation ABG results: PT/INR, D-dimer PT 11.0 Seconds (9.4-12.1) 10/08/17 19:30 <Ambika Friedman - Last Filed: 10/09/17 18:00> (3) CAD (coronary artery disease) Qualifiers: Coronary Disease-Associated Artery/Lesion type: [place] artery [place] vs. transplanted heart: [place] heart Associated angina: angina presence unspecified Qualified Code(s): I25.10 - Atherosclerotic heart disease of [place] coronary artery without angina pectoris (4) Back pain Qualifiers: Back pain location: thoracic back pain Chronicity: unspecified Back pain laterality: midline Qualified Code(s): M54.6 - Pain in thoracic spine (6) Diabetes Qualifiers: Diabetes mellitus type: type 2 Diabetes mellitus complication status: without complication <Carina Torrez - Last Filed: 10/09/17 22:31> (3) Coronary artery disease Qualifiers: Coronary Disease-Associated Artery/Lesion type: unspecified vessel or lesion type [place] vs. transplanted heart: [place] heart Associated angina: with unstable angina Qualified Code(s): I25.110 - Atherosclerotic heart disease of [place] coronary artery with unstable angina pectoris
[2017-10-10] MEDS: Nitroglycerin 25 MG/250 ML INFUS..BTL IVC SCH (01:06)
[2017-10-10 04:49] LABS: Basophils # 0.1 K/mcL (0.0-0.2); Basophils % 0.8 %; Eosinophils # 0.2 K/mcL (0.0-0.6); Eosinophils % 2.3 %; Hematocrit 38.4 % (35.3-44.9); Hemoglobin 12.9 g/dL (11.5-15.4); Immature Granulocytes % 0.3 % (0-4); Lymphocytes # 2.2 K/mcL (0.6-4.6); Lymphocytes % 32.6 %; Mean Corpuscular HGB Conc 33.6 g/dL (31.6-35.5); Mean Corpuscular Hemoglobin 31.5 pg (28.0-33.3); Mean Corpuscular Volume 93.9 fL (83.0-100.0); Mean Platelet Volume 9.7 fL (9.4-12.4); Monocytes # 0.7 K/mcL (0.0-1.3); Monocytes % 10.9 %; Neutrophils # 3.5 K/mcL (1.6-8.9); Platelet Count 180 K/mcL (140-400); Red Blood Count 4.09 M/mcL (3.82-4.97); Red Cell Distribution Width 13.8 % (11.5-14.5); Segmented Neutrophils % 53.1 %
[2017-10-10 05:10] LABS: BUN/Creatinine Ratio 15 (6-26); Blood Urea Nitrogen 14 mg/dL (8-23); Calcium 9.4 mg/dL (8.6-10.3); Carbon Dioxide 27 mEq/L (23-29); Chloride 102 mEq/L (98-107); Glucose 312 mg/dL (70-105); Osmolality,Calculated 290 (280-300); Potassium 4.2 mEq/L (3.5-5.1); Sodium 134 mEq/L (136-145); eGFR For Non-African Americans 59 (> 60)
[2017-10-10] MEDS: Insulin LISPRO 300 UNITS/3 ML VIAL SQ SCH ×3 (08:11→16:43)
[2017-10-10] MEDS: Aspirin 81 MG TAB.CHEW PO SCH (08:11)
--- NOTE | 2017-10-10 09:12 | Cardiology Progress Note ---
Date of Encounter: 10/10/17 Time of Encounter: 08:15 Assessment and Plan (1) NSTEMI (non-ST elevated myocardial infarction) Current Visit: Yes Status: Acute Pt had a 2 week history of chest pain on exertion -troponins (+) 0.25 ---> 0.27 ---> 0.17, trending down, in setting of accelerated HTN/possible early pneumonia, this is possible a type 2 cardiac insult. NSTEMI vs demand ischemia -EKG showed no changes initially , no ischemia -second EKG showed T wave inversion v5 and v6 (new), I & aVL (seen in October 05 EKG as well). -CXR showed no acute cardiopulmonary process -CT scan showed possible early pneumonia, clinically stable at this time. Afrebrile. Doesn't c/o cough, sputum production, or fevers/chills -s/p stent 10 yrs ago -pt brought to phlebotomist lab assistant yesterday for LHC; LAD has patent stent, free of disease angiographically; RCA/PDA free of disease angiographically, LCX has 25% stenosis in the distal circumflex Plan: -Heparin drip discontinued -on Nitro drip running at 6mL/hr -Started Artorvastatin 40mg PO daily, ASA 81 mg PO daily, Metoprolol mg BID -Hydralazine 10mg q6hr for SBP >160 -last ECHO was 10/05/17 - LVEF is 60%, normal LV chamber, normal RV fxn, no pHTN , no valvular dysfxn -limited ECHO 10/09/17 - LVEF 60-65%, mild increase in LV wall thickness, normal RV structure and fxn -ERNIE score - 5 -pt counsled on controlling risk factors, managing sugars appropriately, and maintaining a low fat/low cholesterol diet -begin cardiac rehab phase 1 -cardiology to sign off at this point if attending is agreeable (2) Shortness of breath Current Visit: Yes Status: Resolved Pt reports SOB for the last two weeks -dyspnea on exertion - cannot walk from parking lot to inside store or up one flight of stairs w/o needing to catch her breath -PND, cannot lay flat during exam without c/o SOB -pt states that the swelling has improved immensely since yesterday, her face/ abdomen/legs feel much less edematous to her -edema has improved on PE -CXR at this time shows no acute cardiopulmonary process -CT scan showed possible early pneumonia, although pt is clinically stable, afebrile, and denies cough/sputum production Plan: -2L fluid restriction -strict I&O's -On triamterence/HCTZ (3) Coronary artery disease Current Visit: No Status: Chronic Pt has hx of PCI 10 yrs ago -s/p [facility] Plan -see above for plan -ASA, statin, beta killian -recommend heart healthy low fat, low cholesterol diet Discussion w patient/family: The assessment and plan as outlined above was discussed with the patient and/or family members who expressed understanding and agreement. All questions were answered. Thank you for involving us in the care of your patient. Please call with any questions. Subjective Principal diagnosis: NSTEMI Interval history: Pt is seen at bedside. This morning she has no new complaints. She denies chest pain, SOB, N/V/D, abdominal pain. She states that her swelling is significantly better and she feels a lot less "filled with fluid." She was brought back for [facility] yesterday with Dr. Young -LAD proximal has patent stent from previous procedure, LAD angiographically free of disease -1st diagonal is angiographically free of disease -RCA is angiographically free of disease -Right PDA is angiographically free of disease -LCX is 25% stenosed in the distal circumflex The patient still has a nitro drip running at 6mL/hr Metroprolol increased to 25mg BID by night team Nurse states no overnight events Fluids - none Electrolytes - all WNL Nutrition - cardiac diet DVT prophylaxis - on heparin GI prophylaxis - not indicated Objective Vital Signs, Last 4 Hours Temp Pulse Resp BP Pulse Ox 10/10/17 07:24 97.9 F 84 18 158/75 94 10/10/17 06:41 87 144/70 General: Conversant, No Apparent Distress HEENT: Atraumatic Neck: No JVD Cardiac: Reg Rate and Rhythm, Normal S1 and S2 Lungs: Normal Breath Sounds Neuro: Alert and responsive Abdomen: Soft, Non-Tender Skin: No rashes noted on visualized skin Extremities: No Edema Results 10/10/17 04:21 10/10/17 04:21 Lab Results 10/10/17 10/10/17 04:21 04:21 WBC 6.6 Hgb 12.9 Hct 38.4 Plt Count 180 Sodium 134 L Potassium 4.2 Chloride 102 Carbon Dioxide 27 BUN 14 Creatinine 0.95 Glucose 312 H Calcium 9.4 Consult Discharge Plan - Plan Referrals: Polina Blake CNP [Primary Care Provider] -
[2017-10-10] MEDS ORDERED: Furosemide 20 MG TABLET PO SCH (14:45)
[2017-10-10] MEDS ORDERED: Gabapentin 300 MG CAPSULE PO SCH (14:45)
[2017-10-10 15:57] VITALS: BP 170/74
--- NOTE | 2017-10-10 16:32 | Discharge Summary ---
<Ambika Friedman - Last Filed: 10/10/17 17:47> Date of Encounter: 10/10/17 Time of Encounter: 10:30 - Discharge Diagnosis (1) NSTEMI (non-ST elevated myocardial infarction) Priority: Primary Status: Acute (2) Shortness of breath Priority: Secondary Status: Resolved (3) CAD (coronary artery disease) Priority: Secondary Status: Chronic Qualifiers: Coronary Disease-Associated Artery/Lesion type: [place] artery [place] vs. transplanted heart: [place] heart Associated angina: angina presence unspecified Qualified Code(s): I25.10 - Atherosclerotic heart disease of [place] coronary artery without angina pectoris (4) Back pain Priority: Secondary Status: Acute Qualifiers: Back pain location: thoracic back pain Chronicity: unspecified Back pain laterality: midline Qualified Code(s): M54.6 - Pain in thoracic spine (5) Essential hypertension Priority: Secondary Status: Acute (6) Diabetes Priority: Secondary Status: Chronic Qualifiers: Diabetes mellitus type: type 2 Diabetes mellitus complication status: without complication Qualified Code(s): E11.9 - Type 2 diabetes mellitus without complications (7) Chronic kidney disease (CKD) Priority: Secondary Status: Acute Assessment and Plan: Stable Qualifiers: Qualified Code(s): N18.9 - Chronic kidney disease, unspecified Hospital course: Marva Malcolm is a 66 year old female who presented to ED on 10/08/17 with intermittent anterior chest pain and shortness of breath that was worsened on exertion and had been occurring for approximately one week. Troponins were drawn and found to be serially elevated at 0.25, 0.27 and 0.17. EKG showed nonspecific ST-T wave changes with no ischemia. CXR showed no acute cardiopulmonary process. CT angiogram was negative for PE or dissection. Sublingual nitroglycerin was used to resolve chest pain. Cardiology was consulted and she was started on heparin and nitroglycerin drips and admitted. Repeat EKG found T wave inversion in V5 and V6 and she was diagnosed with NSTEMI. She was started on aspirin, atorvastatin, and metoprolol. Lasix was given for nonpitting edema of bilateral lower extremities. Blood pressure was controlled with hydralazine. ECHO showed LVEF 60-65% with mild increase in LV wall thickness, normal RV structure and function. ERNIE score of 5. On 10/09/17 she was taken for left heart cath. Previous stent in LAD placed 10 years ago was patent, she was found have 25% stenosis in distal circumflex and RCA/PDA were free of disease. She was clinically stable overnight and into hospital day 2. Hypertension was continued to be managed with hydralazine, lasix was continued for bilateral edema. Atorvastatin, aspirin and metoprolol were also continued. Heparin and nitroglycerin drips were discontinued. Patient was ok to discharge per cardiology. - Time Spent with Patient Total time spent providing and/or coordinating discharge services: Greater than 30 minutes (41 minutes) - Discharge Medications Home Medications: Albuterol Sulfate [Ventolin Hfa] 2 puff IH Q6H 10/09/17 [History] Aspirin [Lo-Dose Aspirin EC] 81 mg PO DAILY 10/09/17 [History] Cyclobenzaprine [Flexeril] 10 mg PO TID 10/09/17 [History] Furosemide [Lasix] 20 mg PO DAILY 10/09/17 [History] Gabapentin [Neurontin] 300 mg PO BID 10/09/17 [History] Insulin Regular, Human [Humulin R U-500 Kwikpen] 0 unit SQ BID 10/09/17 [History ] Levothyroxine [Synthroid] 50 mcg PO DAILY 10/09/17 [History] Omeprazole [PriLOSEC] 20 mg PO DAILY 10/09/17 [History] Oxybutynin [Ditropan] 5 mg PO BID 10/09/17 [History] PARoxetine HCl [Paroxetine HCl] 40 mg PO DAILY 10/09/17 [History] Triamterene/HCTZ 37.5/25mg [Dyazide] 1 each PO DAILY 10/09/17 [History] metFORMIN [Glucophage] 500 mg PO BIDWM 10/09/17 [History] Atorvastatin [Lipitor] 40 mg PO HS tablet 10/10/17 [Rx] Isosorbide MONOnitrate (24 HR) [Imdur] 30 mg PO DAILY tab.er.24h 10/10/17 [Rx] Metoprolol [Lopressor] 25 mg PO BID tablet 10/10/17 [Rx] Allergies/Adverse Reactions: 3 Allergy/AdvReac Type Severity Reaction Status Date / Time No Known Allergies Allergy Verified 03/15/15 18:18 Date of admission: 07/30/18 18:06 Primary care physician: Polina Blake CNP Consults: 10/10/17 07:51 Consult to Cardiac Rehabilitation-Phase1 [CONS] Routine Comment: Reason for Consult: NSTEMI Call Completed: No Discharging clinician: Ambika Friedman Anticipated date of discharge: 10/10/17 - Constitutional Vitals: Temp Pulse Resp BP Pulse Ox 98 F 78 18 170/74 93 10/10/17 15:52 10/10/17 15:52 10/10/17 15:52 10/10/17 15:52 10/10/17 15:52 General appearance: Present: cooperative, A&O X 3, pleasant, no acute distress, answers questions appropriately - Head Head exam: Present: atraumatic, normocephalic - Eye Eye exam: Present: PERRL, conjuntiva pink, sclera anicteric - Neck Neck exam general surgery: Present: supple, trachea midline. Absent: lymphadenopathy - Respiratory Respiratory exam: Present: CTAB. Absent: accessory muscle use, rales, rhonchi, wheezes - Cardiovascular Cardiovascular exam: Present: RRR, +S1, +S2. Absent: diastolic murmur, gallop, rubs, systolic murmur - Expanded Cardiovascular Exam Peripheral pulses: 2+: Radial (L), Radial (R), Dorsalis Pedis (L) PM, Dorsalis Pedis (R) PM - GI/Abdominal GI/Abdominal exam: Present: normal bowel sounds, soft, no peritoneal signs. Absent: distended, tenderness Additional comments: Bandage over right femoral incision site inspected, no swelling, erythema, or drainage. - Extremities Exam Extremities exam: Present: pedal edema, warm, radial pulses palpable and symmetrical. Absent: calf tenderness, cyanotic Additional comments: trace nonpitting edema in bilateral lower extremities - [place] Incision: Present: clean and dry, intact. Absent: red, swollen, inflamed, erythema - Back Exam Back exam: Present: full ROM. Absent: CVA tenderness (L), CVA tenderness (R), muscle spasm, paraspinal tenderness - Neurological Exam Neurological exam: Present: CN II-XII intact, oriented X3, no focal deficits. Absent: pronater drift, facial droop, speech deficit - Psychiatric Psychiatric exam: Present: normal affect, normal mood - Patient Status Disposition: Home, Self-Care Condition: Good Functional capacity at discharge: independent ambulation Overall status at discharge: patient is progressing back to baseline - Discharge Instructions Instructions: Metoprolol (By mouth), Isosorbide Mononitrate (By mouth), Myocardial Infarction (DC), Chest Pain (DC), Urinary Tract Infection in Women ( DC), Diabetes Mellitus Type 2 in Adults (DC), Chronic Hypertension (DC) Follow Up With: Polina Blake CNP [Primary Care Provider] - 10/26/17 9:00 am Additional Instructions: We called in a Prescription for you called Isosorbide Mononitrate 30mg by mouth to [facility] - Diet and Activity Activity: increase activity as tolerated Diet: low salt diet <Carina Torrez - Last Filed: 10/10/17 21:55> Date of Encounter: 10/10/17 - Discharge Diagnosis (1) Shortness of breath Status: Resolved (2) NSTEMI (non-ST elevated myocardial infarction) Status: Acute (3) Coronary artery disease Status: Chronic Hospital course: Ms. Malcolm is a 66 year old female - Time Spent with Patient Total time spent providing and/or coordinating discharge services: Date of admission: 10/09/17 18:06 Primary care physician: Polina Blake CNP Consults: 10/10/17 07:51 Consult to Cardiac Rehabilitation-Phase1 [CONS] Routine Comment: Reason for Consult: NSTEMI Call Completed: No - Constitutional Vitals: Temp Pulse Resp BP Pulse Ox 98 F 78 18 170/74 93 10/10/17 15:52 10/10/17 15:52 10/10/17 15:52 10/10/17 15:52 10/10/17 15:52 - Attending Attestation I examined this patient and my medical decision-making was reviewed with the Resident Physician. I agree with the documented findings, disposition and treatment plan as described except to the extent set forth below.
[2017-10-10] MEDS ORDERED: Isosorbide MONOnitrate (24 HR) 30 MG TAB.ER.24H PO SCH (18:05)
[2017-10-11] MEDS ORDERED: Isosorbide MONOnitrate (24 HR) 30 MG TAB.ER.24H PO SCH (09:00)
== END 2017-10-10 19:39 | disposition home or self-care (01) | DRG 281 ==
LOC: 2NENU 19:19 → EMEROO 19:19 → 2NENU 22:17
PROVIDERS: ADMIT Family Medicine; ATTEND Family Medicine

== ENCOUNTER 2018-01-29 21:17 | Observation (INO) ==
[2018-01-29] MEDS ORDERED: Nitroglycerin 0.4 MG TAB.SUBL SL ONE (21:29)
[2018-01-29 21:56] LABS: Basophils % 0.3 %; Eosinophils # 0.1 K/mcL (0.0-0.6); Eosinophils % 1.5 %; Hematocrit 40.9 % (35.3-44.9); Hemoglobin 13.9 g/dL (11.5-15.4); Immature Granulocytes % 0.3 % (0-4); Lymphocytes # 0.8 K/mcL (0.6-4.6); Lymphocytes % 9.9 %; Mean Corpuscular Hemoglobin 31.2 pg (28.0-33.3); Mean Corpuscular Volume 91.9 fL (83.0-100.0); Mean Platelet Volume 9.4 fL (9.4-12.4); Monocytes # 0.7 K/mcL (0.0-1.3); Monocytes % 8.8 %; Neutrophils # 6.3 K/mcL (1.6-8.9); Platelet Count 189 K/mcL (140-400); Red Blood Count 4.45 M/mcL (3.82-4.97); Red Cell Distribution Width 13.9 % (11.5-14.5); Segmented Neutrophils % 79.2 %
[2018-01-29 22:04] LABS: Prothrombin Time 11.7 Seconds (9.4-12.1)
--- NOTE | 2018-01-29 22:04 | Emergency Department Note ---
Disposition Clinical Impression: Chest pain Qualifiers: Chest pain type: unspecified Qualified Code(s): R07.9 - Chest pain, unspecified Disposition: Admitted As Inpatient Condition: Good Chest Pain HPI - General Chief Complaint: ED Chest Pain Stated Complaint: chest pain Time Seen by Provider: 01/29/18 21:24 Source: EMS Mode of arrival: EMS Limitations: no limitations Vital Signs Reviewed: Yes Nursing Notes Reviewed: Yes - History of Present Illness HPI Narrative: 67-year-old female history of CAD with one stent, diabetes, hypertension, hyperlipidemia who presents to the ER with a complaint of chest pain. Symptoms began at 7 PM at rest. She explains pain that went into her back. She took a nitroglycerin and it resolved. She felt lightheaded during this as well. She developed a headache after the nitroglycerin. Denies any nausea vomiting or diarrhea. No recent illnesses including fever, cough or sore throat. No other complaints. Pt complaint: chest pain Onset (ago): hour(s) Duration: now resolved Onset: during rest Pain Location: substernal Severity scale (1-10): 7 Quality: heaviness Pain Radiation: back Improves with: nitroglycerin Worsens with: nothing Associated symptoms: Denies: nausea, vomiting, diaphoresis, dyspnea Treatments prior to arrival chest pain: aspirin, nitroglycerin - Related Data Home Medications Medication Instructions Recorded Confirmed Albuterol Sulfate [Ventolin Hfa] 2 puff IH Q6H 10/09/17 01/29/18 Aspirin [Lo-Dose Aspirin EC] 81 mg PO DAILY 10/09/17 01/29/18 Furosemide [Lasix] 40 mg PO DAILY 10/09/17 01/29/18 Gabapentin [Neurontin] 300 mg PO BID 10/09/17 01/29/18 Insulin Regular, Human [Humulin R 0 unit SQ BID 10/09/17 01/29/18 U-500 Kwikpen] Levothyroxine [Synthroid] 50 mcg PO DAILY 10/09/17 01/29/18 Omeprazole [PriLOSEC] 20 mg PO DAILY 10/09/17 01/29/18 Oxybutynin [Ditropan] 5 mg PO BID 10/09/17 01/29/18 PARoxetine HCl [Paroxetine HCl] 40 mg PO DAILY 10/09/17 01/29/18 Triamterene/HCTZ 37.5/25mg 1 each PO DAILY 10/09/17 01/29/18 [Dyazide] metFORMIN [Glucophage] 1,000 mg PO DAILY 10/09/17 01/29/18 Mv,Fe,Min/Lutein [A Thru Z Select 1 tab PO DAILY 01/29/18 01/29/18 Women's Tablet] Nitroglycerin [Nitrostat] 0.4 mg SL Q5M PRN 01/29/18 01/29/18 Previous Rx's Medication Instructions Recorded Atorvastatin [Lipitor] 40 mg PO HS tablet 10/10/17 Isosorbide MONOnitrate (24 HR) 30 mg PO DAILY tab.er.24h 10/10/17 [Imdur] Metoprolol [Lopressor] 25 mg PO BID tablet 10/10/17 Allergies Allergy/AdvReac Type Severity Reaction Status Date / Time No Known Allergies Allergy Verified 03/15/15 18:18 All systems ED: reviewed and negative except as stated. 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 - Social History Smoking Status: Never smoker Alcohol use: Reports: occasionally Drug use: Reports: none Physical Exam - General Limitations: no limitations General appearance: alert, in no apparent distress - Head Head exam: atraumatic, normocephalic, normal inspection - Eye Eye exam: Present: normal appearance - ENT ENT exam: normal exam - Neck Neck exam: Present: normal inspection - Chest Chest inspection: Present: normal inspection, symmetric chest wall rise - Respiratory Respiratory exam: Present: normal lung sounds bilaterally - Cardiovascular Cardiovascular exam: Present: regular rate, normal rhythm, normal heart sounds - Abdominal Exam Abdominal exam: Present: soft, Non-Tender. Absent: tenderness, distention, rigidity - Extremities Exam Extremities exam: Present: normal inspection, full ROM - Expanded Upper Extremity Exam Shoulder exam: Present: normal inspection, full ROM Arm exam: Present: normal inspection, full ROM Elbow exam: Present: normal inspection, full ROM Forearm/Wrist exam: Present: normal inspection, full ROM Hand exam: Present: normal inspection, full ROM - Expanded Lower Extremity Exam Hip/Pelvis exam: Present: normal inspection, full ROM Upper leg exam: Present: normal inspection, full ROM Knee exam: Present: normal inspection, full ROM Lower leg exam: Present: normal inspection, full ROM Ankle exam: Present: normal inspection, full ROM Foot/toe exam: Present: normal inspection, full ROM - Skin Skin exam: Present: warm, dry Course Course Narrative: Patient seen and examined. Vital signs reviewed. Chest pain-free at this time. Plan for EKG, chest x-ray as well as labs including troponin. She received aspirin in route. Vital Signs Temperature 99.3 F 01/29/18 21:18 Pulse Rate 87 01/29/18 21:18 Respiratory Rate 20 01/29/18 21:18 Blood Pressure 172/88 01/29/18 21:18 O2 Sat by Pulse Oximetry 94 01/29/18 21:18 Temperature 99.3 F 01/29/18 21:18 Pulse Rate 84 01/29/18 21:35 Respiratory Rate 17 01/29/18 21:35 Blood Pressure 160/83 01/29/18 21:35 O2 Sat by Pulse Oximetry 98 01/29/18 21:35 Oxygen Delivery Oxygen Delivery Nasal Cannula Chest Pain - MDM Narrative Medical decision making narrative: 67-year-old female presenting with chest pain starting this evening. She has numerous cardiac risk factors. Her pain resolved prior to arrival which was relieved with nitroglycerin. Her EKG is sinus. Chest x-ray unremarkable. Labs are grossly unremarkable including a normal troponin on initial evaluation. The patient is pain-free at this time. The patient is admitted to the hospitalist service for further management. - Lab Data Lab results reviewed: Yes I reviewed the patient's lab results. Result diagrams: 01/29/18 21:40 01/29/18 21:40 Lab Results 01/29/18 01/29/18 01/29/18 Range/Units 21:40 21:40 21:40 WBC 8.0 (4.3-11.1) K/mcL RBC 4.45 (3.82-4.97) M/mcL Hgb 13.9 (11.5-15.4) g/dL Hct 40.9 (35.3-44.9) % MCV 91.9 (83.0-100.0) fL MCH 31.2 (28.0-33.3) pg MCHC 34.0 (31.6-35.5) g/dL RDW 13.9 (11.5-14.5) % Plt Count 189 (140-400) K/mcL MPV 9.4 (9.4-12.4) fL Immature Gran % 0.3 (0-4) % Seg Neutrophils % 79.2 % Lymphocytes % 9.9 % Monocytes % 8.8 % Eosinophils % 1.5 % Basophils % 0.3 % Neutrophils # 6.3 (1.6-8.9) K/mcL Lymphocytes # 0.8 (0.6-4.6) K/mcL Monocytes # 0.7 (0.0-1.3) K/mcL Eosinophils # 0.1 (0.0-0.6) K/mcL Basophils # 0.0 (0.0-0.2) K/mcL PT 11.7 (9.4-12.1) Seconds INR 1.0 APTT 33.7 (26.0-36.0) Seconds Sodium (136-145) mEq/L Potassium (3.5-5.1) mEq/L Chloride (98-107) mEq/L Carbon Dioxide (23-29) mEq/L BUN (8-23) mg/dL Creatinine (0.60-1.20) mg/dL Est GFR ( Amer) (> 60) Est GFR (Non-Af Amer) (> 60) BUN/Creatinine Ratio (6-26) Glucose (70-105) mg/dL Calculated Osmolality (280-300) Calcium (8.6-10.3) mg/dL Troponin I (< 0.04) ng/mL B-Natriuretic Peptide 46 (Less than 100) pg/mL 01/29/18 Range/Units 21:40 WBC (4.3-11.1) K/mcL RBC (3.82-4.97) M/mcL Hgb (11.5-15.4) g/dL Hct (35.3-44.9) % MCV (83.0-100.0) fL MCH (28.0-33.3) pg MCHC (31.6-35.5) g/dL RDW (11.5-14.5) % Plt Count (140-400) K/mcL MPV (9.4-12.4) fL Immature Gran % (0-4) % Seg Neutrophils % % Lymphocytes % % Monocytes % % Eosinophils % % Basophils % % Neutrophils # (1.6-8.9) K/mcL Lymphocytes # (0.6-4.6) K/mcL Monocytes # (0.0-1.3) K/mcL Eosinophils # (0.0-0.6) K/mcL Basophils # (0.0-0.2) K/mcL PT (9.4-12.1) Seconds INR APTT (26.0-36.0) Seconds Sodium 137 (136-145) mEq/L Potassium 4.0 (3.5-5.1) mEq/L Chloride 102 (98-107) mEq/L Carbon Dioxide 28 (23-29) mEq/L BUN 17 (8-23) mg/dL Creatinine 0.95 (0.60-1.20) mg/dL Est GFR ( Amer) > 60 (> 60) Est GFR (Non-Af Amer) 59 L (> 60) BUN/Creatinine Ratio 18 (6-26) Glucose 77 (70-105) mg/dL Calculated Osmolality 284 (280-300) Calcium 9.6 (8.6-10.3) mg/dL Troponin I < 0.03 (< 0.04) ng/mL B-Natriuretic Peptide (Less than 100) pg/mL - Radiology Data Radiology results reviewed: Yes I reviewed the patient's radiology results. Chest X-Ray 01/29/18 21:29 IMPRESSION: No acute cardiopulmonary findings. D/ / Kam Doll / Kam Doll Interpreting Provider: Kam Doll - EKG Data EKG attestation: Yes I reviewed and interpreted this EKG. EKG results narrative: EKG demonstrates sinus rhythm with a rate of 83 beats or minute. Normal axis. Normal intervals. Normal R-wave progression. No gross ST elevations or depressions. No acute ischemic findings. Heart Score - Score History: Moderately Suspicious EKG: Normal Age: Greater than 65 Risk Factors: Equal/Greater than 3 risk factor or history of atherosclerotic disease Troponin: Less than normal limit HEART Score Total: 5 S.Cristi - Kaye Situation: Demographics, MOA Background: Presenting Complaint, Relevant PMH, Meds, & Allergies Assessment: Course and respsone to treatment, Exam Concerns, Patient/Family Expectation, Pertinant Lab Results Recommendation: Barrier(s) to disposition, Recommendation based on pending studies, treatments, or consults Kaye Report Given to: Dr. Elier Restrepo Repor Time: 22:40 Attestation Statement - Attestation Attestation: I examined this patient and my medical decision-making was reviewed with the Resident Physician. I agree with the documented findings, disposition and treatment plan as described except to the extent set forth below. Findings consistent with chest pain. Atypical in nature. There are some risk factors. We will proceed with admission for ACS rule out. EKG is stable at time of admission.
[2018-01-29 22:07] LABS: Activated Partial Thrombo Time 33.7 Seconds (26.0-36.0)
[2018-01-29 22:15] LABS: BUN/Creatinine Ratio 18 (6-26); Blood Urea Nitrogen 17 mg/dL (8-23); Calcium 9.6 mg/dL (8.6-10.3); Carbon Dioxide 28 mEq/L (23-29); Chloride 102 mEq/L (98-107); Glucose 77 mg/dL (70-105); Osmolality,Calculated 284 (280-300); Sodium 137 mEq/L (136-145); Troponin I < 0.03 ng/mL (< 0.04); eGFR For Non-African Americans 59 (> 60)
[2018-01-30] MEDS ORDERED: Nitroglycerin 0.4 MG TAB.SUBL SL PRN (03:00)
[2018-01-30] MEDS ORDERED: Acetaminophen 325 MG TABLET PO PRN (03:00)
[2018-01-30] MEDS ORDERED: *HR* Morphine 2 MG/ML SYRINGE IVP PRN (03:00)
[2018-01-30] MEDS ORDERED: Dextrose Gel 15 GM/37.5 ML TUBE PO PRN ×2 (03:00)
[2018-01-30] MEDS ORDERED: *HR* Dextrose 50 % in Water (Syg) 50 ML SYRINGE IVP PRN (03:00)
[2018-01-30] MEDS ORDERED: D5% in Water 1,000 ML IVC PRN (03:00)
[2018-01-30] MEDS ORDERED: Naloxone 0.4 MG/ML INJ IVP PRN (03:00)
--- NOTE | 2018-01-30 03:26 | Internal Med History&Physical ---
Date of Encounter: 01/30/18 Time of Encounter: 02:15 Internal Medicine - H&P: HPI Chief complaint: chest pain Admitted From: Emergency Dept History of present illness: Ms. Malcolm is a 67 year old female who presents to the ER tonight with complaints of substernal chest pain and pressure that woke her up from sleep. She was lying in bed almost asleep when she had developed a substernal chest pain with associated dyspnea and some diaphoresis. She took some sublingual nitroglycerin with relief of her chest pain. Given her known coronary artery disease and prior stent, she came to the ER for evaluation. Workup in the ER was unremarkable. However, given her history of coronary disease, she was admitted to hospitalist service for further workup and care. Upon my assessment of the patient, she is chest pain-free. She confirms above history. She denies any fevers, cough, congestion, vomiting, or diarrhea. Of note, she had PCI and stent about 5 years ago. She states she had a recent OR this summer and underwent left heart catheterization in September revealing a patent stent. She did have a stress test which was abnormal then. Since then, she has had no chest pain until [facility]. Her chest pain did resolve with nitroglycerin as noted above. She does also have some chronic GERD and some food intolerance. Her symptoms may be GI in nature. However, given her known coronary artery disease, cardiac workup is warranted. Past Med Surg Social Fam HX - Past Medical History Attestation: Yes The following information was validated with the patient. Source: patient, old records reviewed Medical history: arthritis, coronary artery disease, diabetes, GERD, hypertension, kidney stones, thyroid disease Additional medical history: hypothyroidism Psychiatric history: no psych history - Past Surgical History Surgical History: angioplasty/stent - Social History Smoking Status: Never smoker Smokeless Tobacco Status: No Alcohol use: occasionally Drug use: none Current living situation: Home Activity Level: Independent ambulation Recent Out of Country Travel Within the Last 8 Weeks: No - Family History Mother Family Member Ethnicity: Non- Living Status: Hx Family Cardiac Disorders: No Hx Family Respiratory Disorders: No Hx Family Cancer: No Hx Family GI Disorders: No Hx Family Endocrine Disorder: Yes Hx Family Neuromuscular Disorders: No Hx Family Neurologic Disorders: No Hx Family HEENT Disorders: No Hx Family Autoimmune Disorders: No Internal Medicine - H&P: Meds Albuterol Sulfate [Ventolin Hfa] 2 puff IH Q6H 10/09/17 [History] Aspirin [Lo-Dose Aspirin EC] 81 mg PO DAILY 10/09/17 [History] Furosemide [Lasix] 40 mg PO DAILY 10/09/17 [History] Gabapentin [Neurontin] 300 mg PO BID 10/09/17 [History] Insulin Regular, Human [Humulin R U-500 Kwikpen] 0 unit SQ BID 10/09/17 [History] Levothyroxine [Synthroid] 50 mcg PO DAILY 10/09/17 [History] Omeprazole [PriLOSEC] 20 mg PO DAILY 10/09/17 [History] Oxybutynin [Ditropan] 5 mg PO BID 10/09/17 [History] PARoxetine HCl [Paroxetine HCl] 40 mg PO DAILY 10/09/17 [History] Triamterene/HCTZ 37.5/25mg [Dyazide] 1 each PO DAILY 10/09/17 [History] metFORMIN [Glucophage] 1,000 mg PO DAILY 10/09/17 [History] Atorvastatin [Lipitor] 40 mg PO HS tablet 10/10/17 [Rx] Isosorbide MONOnitrate (24 HR) [Imdur] 30 mg PO DAILY tab.er.24h 10/10/17 [Rx] Metoprolol [Lopressor] 25 mg PO BID tablet 10/10/17 [Rx] Mv,Fe,Min/Lutein [A Thru Z Select Women's Tablet] 1 tab PO DAILY 01/29/18 [History] Nitroglycerin [Nitrostat] 0.4 mg SL Q5M PRN 01/29/18 [History] Allergy/AdvReac Type Severity Reaction Status Date / Time No Known Allergies Allergy Verified 03/15/15 18:18 - Constitutional Constitutional: no chills, no fever(s), no night sweats - EENT Eyes: no blurry vision, no change in vision Ears: no ear pain, no tinnitus Nose, mouth and throat: no nasal congestion, no sore throat - Cardiovascular Cardiovascular ROS IM: chest pain, diaphoresis, dyspnea, no orthopnea, no paroxysmal nocturnal dyspnea, no syncope - Respiratory Respiratory: no cough, no hemoptysis, no chest congestion, no excessive phlegm production - Gastrointestinal Gastrointestinal: heartburn, no abdominal pain, no hematemesis, no hematochezia, no melena, no nausea, no vomiting - Genitourinary Genitourinary: no dysuria, no flank pain, no hematuria - Musculoskeletal Musculoskeletal ROS IM: no arthralgias, no back pain - Integumentary Integumentary IM: no rash, no jaundice - Neurological Neurological ROS: no dizziness, no focal weakness, no frequent falls, no headache(s) - Psychiatric Psychiatric: no anxiety, no depression - Endocrine Endocrine IM: no cold intolerance, no heat intolerance, no polydipsia, no polyuria - Allergic/Immunologic Allergic/Immunologic: GI upset with certain foods, no wheezing - Constitutional Vitals: Temp Pulse Resp BP Pulse Ox 98.3 F 91 16 130/77 96 01/29/18 23:35 01/29/18 23:35 01/29/18 23:35 01/29/18 23:35 01/29/18 23:35 General appearance: Present: cooperative, A&O X 3, pleasant, no acute distress, answers questions appropriately Exam: chest pain free - Head Head exam: Present: atraumatic, normal inspection - Eye Eye exam: Present: EOMI, PERRL. Absent: scleral icterus Pupils: Present: normal accommodation - ENT ENT exam: Present: mucous membranes dry, normal exam, normal oropharynx - Neck Neck exam general surgery: Present: supple. Absent: tenderness, nuchal rigidity, thyromegaly - Respiratory Respiratory exam: Present: CTAB. Absent: chest wall tenderness, rales, rhonchi, wheezes - Cardiovascular Cardiovascular exam: Present: distant heart sounds, RRR, +S1, +S2. Absent: diastolic murmur, systolic murmur - GI/Abdominal GI/Abdominal exam: Present: normal bowel sounds, soft. Absent: hepatomegaly, mass, splenomegaly - Extremities Exam Extremities exam: Present: full ROM, normal capillary refill, warm, radial pulses palpable and symmetrical. Absent: calf tenderness, pedal edema, t enderness - Back Exam Back exam: Present: normal inspection. Absent: CVA tenderness (L), CVA tenderness (R) - Neurological Exam Neurological exam: Present: alert, CN II-XII intact, oriented X3, no focal deficits - Psychiatric Psychiatric exam: Present: normal affect, normal mood - Skin Skin exam: Present: dry, intact, warm Internal Med - H&P Results - Labs CBC & Chem 7: 01/29/18 21:40 01/29/18 21:40 Labs: Short CBC 01/29/18 Range/Units 21:40 WBC 8.0 (4.3-11.1) K/mcL Hgb 13.9 (11.5-15.4) g/dL Hct 40.9 (35.3-44.9) % Plt Count 189 (140-400) K/mcL Neutrophils # 6.3 (1.6-8.9) K/mcL BMP 01/29/18 21:40 Sodium 137 Potassium 4.0 Chloride 102 Carbon Dioxide 28 BUN 17 Creatinine 0.95 Glucose 77 Calcium 9.6 Cardiac Enzymes 01/29/18 Range/Units 21:40 Troponin I < 0.03 (< 0.04) ng/mL - EKG Data -: EKG Interpreted by Myself - EKG Data Prior EKG available for review: no EKG comments: 01/30/18 03:29 NSR; no acute ST-T changes - Impressions ITS Impressions Chest X-Ray 01/29/18 21:29 IMPRESSION: No acute cardiopulmonary findings. D/ / Kam Doll / Kam Doll Interpreting Provider: Kam Doll - Diagnostic Studies Chest x-ray Status: image reviewed by me (negative) - Assessment and plan (1) Chest pain Current Visit: Yes Status: Acute Assessment and plan: 1. Will trend troponin, EKG's, and keep npo. 2. Consult cardiology given known CAD and recent OR. 3. SL NTG and Morphine ordered PRN chest pain. 4. Recent ECHO results reviewed; repeat ECHO if clinically indicated/necessary. Qualifiers: Chest pain type: unspecified Qualified Code(s): R07.9 - Chest pain, unspecified (2) IDDM (insulin dependent diabetes mellitus) Current Visit: Yes Status: Chronic Assessment and plan: 1. Will place on SSI Q6H while npo. 2. Monitor glucose and adjust as necessary. 3. Verify home meds and resume as appropriate. (3) CAD (coronary artery disease) Current Visit: Yes Status: Chronic Assessment and plan: 1. Continue home meds as appropriate. 2. Work-up as above. Qualifiers: Coronary Disease-Associated Artery/Lesion type: [place] artery [place] vs. transplanted heart: [place] heart Associated angina: with stable angina Qualified Code(s): I25.118 - Atherosclerotic heart disease of [place] coronary artery with other forms of angina pectoris (4) DVT prophylaxis Current Visit: Yes Status: Acute Assessment and plan: 1. Heparin SQ.
[2018-01-30] MEDS: 0.9 % Sodium Chloride 1,000 ML IVC SCH ×2 (03:28→16:58)
[2018-01-30 04:29] LABS: INR 1.1; Prothrombin Time 11.9 Seconds (9.4-12.1)
[2018-01-30 04:32] LABS: Activated Partial Thrombo Time 33.4 Seconds (26.0-36.0)
[2018-01-30 04:38] LABS: Troponin I < 0.03 ng/mL (< 0.04)
[2018-01-30 04:39] LABS: Alanine Aminotransferase 15 Units/L (7-52); Albumin/Globulin Ratio 1.1 (1.1-2.2); Alkaline Phosphatase 57 Units/L (34-104); Aspartate Amino Transferase 23 Units/L (13-39); BUN/Creatinine Ratio 18 (6-26); Bilirubin,Total 0.7 mg/dL (0.3-1.0); Blood Urea Nitrogen 21 mg/dL (8-23); Calcium 9.2 mg/dL (8.6-10.3); Carbon Dioxide 24 mEq/L (23-29); Chloride 102 mEq/L (98-107); Chol/HDL Ratio 4.1 (0-4.9); Cholesterol 130 mg/dL (< 200); Globulin 3.5 g/dL (2.4-3.5); Glucose 137 mg/dL (70-105); HDL Cholesterol 32 mg/dL (40-59); LDL Cholesterol,Calculated 63 mg/dL (0-99); Magnesium 1.6 mg/dL (1.6-2.6); Osmolality,Calculated 287 (280-300); Potassium 3.8 mEq/L (3.5-5.1); Sodium 136 mEq/L (136-145); Total Protein 7.5 g/dL (6.4-8.9); Triglycerides 173 mg/dL (< 150); eGFR For Non-African Americans 47 (> 60)
[2018-01-30] MEDS: *HR* Heparin 5,000 UNIT/ML VIAL SQ SCH ×2 (06:07→13:52)
[2018-01-30] MEDS: Insulin LISPRO 300 UNITS/3 ML VIAL SQ SCH ×2 (06:07→12:24)
[2018-01-30] MEDS ORDERED: Gabapentin 300 MG CAPSULE PO SCH (09:00)
[2018-01-30] MEDS ORDERED: Isosorbide MONOnitrate (24 HR) 30 MG TAB.ER.24H PO SCH (09:00)
[2018-01-30] MEDS ORDERED: Aspirin Enteric Coated 81 MG Tablet PO SCH (09:00)
[2018-01-30] MEDS ORDERED: Multivit/Ca/Min/Fe/FA 1 TAB TABLET PO SCH (09:00)
--- NOTE | 2018-01-30 09:31 | Cardiology Consult Note ---
Addendum entered and electronically signed by Danae Benavidez DO 01/30/18 13:30: Addendum to Attending Attestation: Patient recently had LHC performed in September 2017 in which there was residual CAD but mild in severity. Previous stent placed was patent. Given her clinical presentation suggesting a GI etiology and negative cardiac workup - negative troponin, no new ECG changes - patient does not warrant stress testing at this time. Recommend outpatient follow up. Will sign off. Please call with questions. Original Note: <ShikhaSumanth lovey R - Last Filed: 01/30/18 09:25> Date of Encounter: 01/30/18 Time of Encounter: 09:25 Assessment and Plan (1) Chest pain Current Visit: Yes Status: Acute Presented with chest pain that occurred yesterday at rest while lying down, associated with dyspnea and diaphoresis. Relieved with 1 nitro, no recurrence. Pt states different than prior anginal equivalent, which was back pain. Troponins negative x 2. ECG no ischemic changes. Exercised in cardiac rehab yesterday for 1 hour without symptoms. Pain is atypical. Known hx GERD as well. On Prilosec 20mg daily. [facility] 10/09/17: Mild 1 vessel CAD. Stent placed from prior procedure in pLAD patent. Limited TTE 10/09/17 EF 60-65%. Given recent LHC without intervention, negative troponin and atypical symptoms, no further inpt cardiac work-up is warranted. Will increase Imdur to 60mg daily. Anticipate sign off once seen and evaluated by Dr. Benavidez. Qualifiers: Chest pain type: unspecified Qualified Code(s): R07.9 - Chest pain, unspecified (2) CAD (coronary artery disease) Current Visit: Yes Status: Chronic Hx CAD s/p PCI. [facility] 10/09/17: Mild 1 vessel CAD. Stent placed from prior procedure in pLAD patent. Continue ASA, Statin, BB, nitrates. Increase Imdur to 60mg daily. Qualifiers: Coronary Disease-Associated Artery/Lesion type: [place] artery [place] vs. transplanted heart: [place] heart Associated angina: with stable angina Qualified Code(s): I25.118 - Atherosclerotic heart disease of [place] coronary artery with other forms of angina pectoris Discussion w patient/family: The assessment and plan as outlined above was discussed with the patient and/or family members who expressed understanding and agreement. All questions were answered. Thank you for involving us in the care of your patient. Please call with any questions. I will discuss all the above with Dr. Benavidez and make changes as necessary. History of Present Illness Consult date: 01/30/18 Requesting physician: Dom Thapa Consult reason: chest pain Chief complaint: chest pain History of present illness: Ms. Malcolm is a 67 year old female with PMH of CAD s/p PCI, DMII, HTN, HLD who presents to the ER with complaints of substernal chest pain and pressure at rest. She was lying down yesterday when she developed substernal chest pain with associated dyspnea and some diaphoresis. She took SL nitroglycerin with relief of her chest pain. No recurrence. Of note, she exercised for 1 hour at cardiac rehab yesterday on the treadmill and bike with no chest pain. Troponins negative x 2. No ECG changes. Cardiology consulted for further recs. [facility] 09/2017 mild 1 vessel CAD, stent placed from prior procedure in pLAD patent. No intervention. Prior CV testing: [facility] 10/09/17: Mild 1 vessel CAD. Stent placed from prior procedure in pLAD patent. Limited TTE 10/09/17 EF 60-65%. Past Med Surg Social Fam HX - Past Medical History Medical history: arthritis, coronary artery disease, diabetes, GERD, hypertension, kidney stones, thyroid disease Additional medical history: hypothyroidism Psychiatric history: no psych history - Past Surgical History Surgical History: angioplasty/stent - Social History Smoking Status: Never smoker Smokeless Tobacco Status: No Alcohol use: occasionally Drug use: none - Family History Mother Family Member Ethnicity: Non- Living Status: Hx Family Cardiac Disorders: No Hx Family Respiratory Disorders: No Hx Family Cancer: No Hx Family GI Disorders: No Hx Family Endocrine Disorder: Yes Hx Family Neuromuscular Disorders: No Hx Family Neurologic Disorders: No Hx Family HEENT Disorders: No Hx Family Autoimmune Disorders: No Medications and Allergies Albuterol Sulfate [Ventolin Hfa] 2 puff IH Q6H 10/09/17 [History] Aspirin [Lo-Dose Aspirin EC] 81 mg PO DAILY 10/09/17 [History] Furosemide [Lasix] 40 mg PO DAILY 10/09/17 [History] Gabapentin [Neurontin] 300 mg PO BID 10/09/17 [History] Insulin Regular, Human [Humulin R U-500 Kwikpen] 0 unit SQ BID 10/09/17 [History] Levothyroxine [Synthroid] 50 mcg PO DAILY 10/09/17 [History] Omeprazole [PriLOSEC] 20 mg PO DAILY 10/09/17 [History] Oxybutynin [Ditropan] 5 mg PO BID 10/09/17 [History] PARoxetine HCl [Paroxetine HCl] 40 mg PO DAILY 10/09/17 [History] Triamterene/HCTZ 37.5/25mg [Dyazide] 1 each PO DAILY 10/09/17 [History] metFORMIN [Glucophage] 1,000 mg PO DAILY 10/09/17 [History] Atorvastatin [Lipitor] 40 mg PO HS tablet 10/10/17 [Rx] Isosorbide MONOnitrate (24 HR) [Imdur] 30 mg PO DAILY tab.er.24h 10/10/17 [Rx] Metoprolol [Lopressor] 25 mg PO BID tablet 10/10/17 [Rx] Mv,Fe,Min/Lutein [A Thru Z [employer]'s Tablet] 1 tab PO DAILY 01/29/18 [History] Nitroglycerin [Nitrostat] 0.4 mg SL Q5M PRN 01/29/18 [History] Allergy/AdvReac Type Severity Reaction Status Date / Time No Known Allergies Allergy Verified 03/15/15 18:18 All Systems Review: The remainder of the systems were reviewed and are negative - Cardiovascular Cardiovascular: as per HPI, chest pain at rest, diaphoresis, dyspnea at rest Physical Examination Vital Signs, Last 4 Hours Temp Pulse Resp BP Pulse Ox 01/30/18 07:58 98.3 F 66 16 146/69 95 Vital Signs Temp Pulse Resp BP Pulse Ox 01/30/18 07:58 98.3 F 66 16 146/69 95 01/30/18 04:52 16 96 01/29/18 23:35 98.3 F 91 16 130/77 96 01/29/18 22:55 85 18 143/78 93 01/29/18 21:35 84 17 160/83 98 01/29/18 21:31 97 01/29/18 21:18 99.3 F 87 20 172/88 94 Intake and Output 01/29/18 01/30/18 01/30/18 23:59 07:59 15:59 Output Total 0 / 0 Balance 0 / 0 Output: Urine 0 / 0 Other: Weight 108.4 kg Blood Glucose* 51 156 General: Conversant, No Apparent Distress HEENT: Atraumatic, Normocephaly, Mucus Membranes Moist Neck: No JVD, Normal carotid pulses Cardiac: Reg Rate and Rhythm, Normal S1 and S2, No Murmur Lungs: Normal Breath Sounds, No Wheeze, Rales, Rhonchi Neuro: Alert and responsive, No focal deficits noted Abdomen: Soft, Non-Tender Skin: No rashes noted on visualized skin Musculoskeletal: No Chest Wall Tenderness Extremities: No Clubbing, No Cyanosis, No Edema, Normal Pulses Results 01/29/18 21:40 01/30/18 03:33 Lab Results 01/29/18 01/29/18 01/29/18 21:40 21:40 21:40 WBC 8.0 Hgb 13.9 Hct 40.9 Plt Count 189 INR 1.0 APTT 33.7 Sodium Potassium Chloride Carbon Dioxide BUN Creatinine Glucose Calcium Magnesium Total Bilirubin AST ALT Alkaline Phosphatase Troponin I B-Natriuretic Peptide 46 01/29/18 01/30/18 01/30/18 21:40 03:33 03:33 WBC Hgb Hct Plt Count INR 1.1 APTT 33.4 Sodium 137 136 Potassium 4.0 3.8 Chloride 102 102 Carbon Dioxide 28 24 BUN 17 21 Creatinine 0.95 1.15 Glucose 77 137 H Calcium 9.6 9.2 Magnesium 1.6 Total Bilirubin 0.7 AST 23 ALT 15 Alkaline Phosphatase 57 Troponin I < 0.03 < 0.03 B-Natriuretic Peptide Short CBC 01/29/18 Range/Units 21:40 WBC 8.0 (4.3-11.1) K/mcL Hgb 13.9 (11.5-15.4) g/dL Hct 40.9 (35.3-44.9) % Plt Count 189 (140-400) K/mcL Neutrophils # 6.3 (1.6-8.9) K/mcL BMP 01/30/18 01/29/18 Range/Units 03:33 21:40 Sodium 136 137 (136-145) mEq/L Potassium 3.8 4.0 (3.5-5.1) mEq/L Chloride 102 102 (98-107) mEq/L Carbon Dioxide 24 28 (23-29) mEq/L BUN 21 17 (8-23) mg/dL Creatinine 1.15 0.95 (0.60-1.20) mg/dL Glucose 137 H 77 (70-105) mg/dL Calcium 9.2 9.6 (8.6-10.3) mg/dL Cardiac Enzymes 01/30/18 01/29/18 Range/Units 03:33 21:40 Troponin I < 0.03 < 0.03 (< 0.04) ng/mL Liver Function 01/30/18 Range/Units 03:33 Total Bilirubin 0.7 (0.3-1.0) mg/dL AST 23 (13-39) Units/L ALT 15 (7-52) Units/L Alkaline Phosphatase 57 (34-104) Units/L Albumin 4.0 (3.5-5.7) g/dL Impressions Chest X-Ray 01/29/18 21:29 IMPRESSION: No acute cardiopulmonary findings. D/ / Kam Doll / Kam Doll Interpreting Provider: Kam Doll Active Medications Acetaminophen (Tylenol) 650 mg PO Q6HR PRN PRN Reason: Mild Pain/Fever Stop: 08/01/18 03:01 Albuterol Sulfate (Albuterol Inhaler) 2 puff IH O2INEEQ [facility] Stop: 08/01/18 04:01 Last Admin: 01/30/18 04:52 Dose: 2 puff Aspirin (Aspirin Ec) 81 mg PO DAILY [facility] Stop: 08/01/18 09:01 Last Admin: 01/30/18 08:57 Dose: 81 mg Atorvastatin Calcium (Lipitor) 40 mg PO HS [facility] Stop: 08/01/18 21:01 Dextrose/Water (Dextrose 50% (Syg)) 25 ml IVP AD PRN PRN Reason: Hypoglycemia Stop: 08/01/18 03:01 Gabapentin (Neurontin) 300 mg PO BID [facility] Stop: 08/01/18 09:01 Last Admin: 01/30/18 08:58 Dose: 300 mg Glucagon (Glucagen) 1 mg IM ONCE PRN PRN Reason: Hypoglycemia Stop: 08/01/18 03:01 Glucose (Gluctose) 15 gm PO ONCE PRN PRN Reason: Hypoglycemia Stop: 08/01/18 03:01 Glucose (Gluctose) 30 gm PO ONCE PRN PRN Reason: Hypoglycemia Stop: 08/01/18 03:01 Heparin Sodium (Porcine) (Heparin) 5,000 unit SQ Q8HCO [facility] Stop: 08/01/18 06:01 Last Admin: 01/30/18 06:07 Dose: 5,000 unit Sodium Chloride (0.9 % Sodium Chloride) 1,000 mls @ 75 mls/hr IVC .[id number] [facility] Stop: 01/31/18 05:39 Last Admin: 01/30/18 03:28 Dose: 75 mls/hr Dextrose (Dextrose 5%) 1,000 mls @ 100 mls/hr IVC .Q10H PRN PRN Reason: HYPOGLYCEMIA Stop: 08/01/18 03:01 Insulin Human Lispro (Humalog) 0 units SQ Q6HR [facility]; Protocol Stop: 08/01/18 06:01 Last Admin: 01/30/18 06:07 Dose: 2 units Isosorbide Mononitrate (Imdur) 30 mg PO DAILY [facility] Stop: 08/01/18 09:01 Last Admin: 01/30/18 08:58 Dose: 30 mg Levothyroxine Sodium (Synthroid) 50 mcg PO 0630 [facility] Stop: 08/01/18 06:31 Last Admin: 01/30/18 06:06 Dose: 50 mcg Metoprolol Tartrate (Lopressor) 25 mg PO BID [facility] Stop: 08/01/18 09:01 Last Admin: 01/30/18 08:58 Dose: 25 mg Morphine Sulfate (Morphine Sulfate) 2 mg IVP Q3H PRN; Protocol PRN Reason: Chest Pain Stop: 08/01/18 03:01 Multivitamins/Calcium (Thera M Plus) 1 tab PO DAILY [facility] Stop: 08/01/18 09:01 Last Admin: 01/30/18 08:57 Dose: 1 tab Naloxone HCl (Narcan) 0.4 mg IVP Q2MIN PRN PRN Reason: SEE COMMENTS Stop: 08/01/18 03:01 Nitroglycerin (Nitroglycerin) 0.4 mg SL Q5MIN PRN PRN Reason: Chest Pain Stop: 08/01/18 03:01 Omeprazole (Prilosec) 20 mg PO 0630 [facility]; Protocol Stop: 08/01/18 06:31 Last Admin: 01/30/18 06:06 Dose: 20 mg Oxybutynin Chloride (Ditropan) 5 mg PO BID [facility]; Protocol Stop: 08/01/18 09:01 Last Admin: 01/30/18 09:03 Dose: 5 mg Paroxetine HCl (Paxil) 40 mg PO DAILY [facility] Stop: 08/01/18 09:01 Last Admin: 01/30/18 08:58 Dose: 40 mg - Imaging and Cardiology Echo: report reviewed Cardiac cath: report reviewed - EKG Interpretation EKG results cardiology: personally reviewed, other (12 hr tele AVG HR 80, SR, no significant pauses or arrhythmias noted.) Consult Discharge Plan - Plan Referrals: Polina Blake CNP [Primary Care Provider] - <Danae Benavidez - Last Filed: 01/30/18 10:38> Date of Encounter: 01/30/18 - Attending Attestation I examined this patient and my medical decision-making was reviewed with the DRUM BARKER OPERATOR. I agree with the documented findings, disposition and treatment plan as described. Ms. Malcolm presented with an episode of atypical chest pain. Describes pain occurring while laying down, just after eating garlic bread and "belching". Cardiac workup negative so far - negative troponin, no new ECG changes when compared to prior. Patient AAOx3, NAD, chest pain free at bedside Vital signs stable Exam demonstrates tenderness in mid epigastric region upon palpation Labs - negative troponins LHC 09/27 - no intervention, stent pLAD patent Echo 09/27 - EF 60-65% Impression: 1. Atypical chest pain: Suspect GI etiology. Patient will however undergo stress testing for ischemic evaluation given cardiac history. 2. CAD: Continue asa, statin, BB, nitrate. Assessment and Plan Discussion w patient/family: The assessment and plan as outlined above was discussed with the patient and/or family members who expressed understanding and agreement. All questions were answered. Thank you for involving us in the care of your patient. Please call with any questions. History of Present Illness History of present illness: Ms. Malcolm is a 67 year old female All Systems Review: The remainder of the systems were reviewed and are negative Physical Examination Vital Signs, Last 4 Hours Temp Pulse Resp BP Pulse Ox 01/30/18 07:58 98.3 F 66 16 146/69 95 Results 01/29/18 21:40 01/30/18 03:33 Lab Results 01/29/18 01/29/18 01/29/18 21:40 21:40 21:40 WBC 8.0 Hgb 13.9 Hct 40.9 Plt Count 189 INR 1.0 APTT 33.7 Sodium Potassium Chloride Carbon Dioxide BUN Creatinine Glucose Calcium Magnesium Total Bilirubin AST ALT Alkaline Phosphatase Troponin I B-Natriuretic Peptide 46 01/29/18 01/30/18 01/30/18 21:40 03:33 03:33 WBC Hgb Hct Plt Count INR 1.1 APTT 33.4 Sodium 137 136 Potassium 4.0 3.8 Chloride 102 102 Carbon Dioxide 28 24 BUN 17 21 Creatinine 0.95 1.15 Glucose 77 137 H Calcium 9.6 9.2 Magnesium 1.6 Total Bilirubin 0.7 AST 23 ALT 15 Alkaline Phosphatase 57 Troponin I < 0.03 < 0.03 B-Natriuretic Peptide 01/30/18 09:02 WBC Hgb Hct Plt Count INR APTT Sodium Potassium Chloride Carbon Dioxide BUN Creatinine Glucose Calcium Magnesium Total Bilirubin AST ALT Alkaline Phosphatase Troponin I < 0.03 B-Natriuretic Peptide
[2018-01-30] MEDS ORDERED: Isosorbide MONOnitrate (24 HR) 30 MG TAB.ER.24H PO ONE (09:42)
[2018-01-30] MEDS ORDERED: Magnesium Oxide 400 MG TABLET PO ONE (13:38)
--- NOTE | 2018-01-30 14:20 | Internal Med Progress Note ---
Date of Encounter: 01/30/18 Time of Encounter: 14:19 - Constitutional Vitals: Temp Pulse Resp BP Pulse Ox 97.8 F 73 16 142/103 91 01/30/18 12:13 01/30/18 12:13 01/30/18 10:38 01/30/18 12:13 01/30/18 12:13 General appearance: Present: cooperative, A&O X 3, pleasant, no acute distress, answers questions appropriately Internal Medicine: Result - Labs CBC & Chem 7: 01/29/18 21:40 01/30/18 03:33 Labs: Short CBC 01/29/18 Range/Units 21:40 WBC 8.0 (4.3-11.1) K/mcL Hgb 13.9 (11.5-15.4) g/dL Hct 40.9 (35.3-44.9) % Plt Count 189 (140-400) K/mcL Neutrophils # 6.3 (1.6-8.9) K/mcL BMP 01/29/18 01/30/18 21:40 03:33 Sodium 137 136 Potassium 4.0 3.8 Chloride 102 102 Carbon Dioxide 28 24 BUN 17 21 Creatinine 0.95 1.15 Glucose 77 137 H Calcium 9.6 9.2 Cardiac Enzymes 01/29/18 01/30/18 01/30/18 Range/Units 21:40 03:33 09:02 Troponin I < 0.03 < 0.03 < 0.03 (< 0.04) ng/mL Liver Function 01/30/18 Range/Units 03:33 Total Bilirubin 0.7 (0.3-1.0) mg/dL AST 23 (13-39) Units/L ALT 15 (7-52) Units/L Alkaline Phosphatase 57 (34-104) Units/L Albumin 4.0 (3.5-5.7) g/dL - ABG Interpretation ABG results: PT/INR, D-dimer PT 11.9 Seconds (9.4-12.1) 01/30/18 03:33 - Impressions Impressions Chest X-Ray 01/29/18 21:29 IMPRESSION: No acute cardiopulmonary findings. D/ / Kam Doll / Kam Doll Interpreting Provider: Kam Doll Consult Discharge Plan - Plan Referrals: Polina Blake CNP [Primary Care Provider] -
[2018-01-30 15:29] VITALS: BP 135/81
--- NOTE | 2018-01-30 15:38 | Discharge Summary ---
<Sadia Marquez - Last Filed: 01/30/18 15:36> - NOTES TO OUTPATIENT PROVIDER Notes to Outpatient Provider: Follow up with PCP in the next 5-7 days for re- evaluation. Cardiology outpatient followup requested. Orders not resulted at time of discharge: Pending orders 01/30/18 06:00 ECG 12 lead ECG [ECG] AM 0600 01/30/18 15:15 Troponin I Q6H Date of Encounter: 01/30/18 Time of Encounter: 15:36 - Discharge Diagnosis (1) Chest pain Priority: Primary Status: Acute Qualifiers: Chest pain type: unspecified Qualified Code(s): R07.9 - Chest pain, unspecified (2) CAD (coronary artery disease) Priority: Secondary Status: Chronic Qualifiers: Coronary Disease-Associated Artery/Lesion type: [place] artery [place] vs. transplanted heart: [place] heart Associated angina: with stable angina Qualified Code(s): I25.118 - Atherosclerotic heart disease of [place] coronary artery with other forms of angina pectoris (3) Diabetes Priority: Secondary Status: Chronic Qualifiers: Diabetes mellitus type: type 2 Diabetes mellitus complication status: without complication Qualified Code(s): E11.9 - Type 2 diabetes mellitus without complications Hospital course: Ms. Malcolm is a 67 year old female presenting on 01/29/18 to the emergency department with chest pain. Patient has medical history of CAD S/P stent to pLAD in 2012, HTN, DM, HLD, GERD. Patient had one day history of substernal chest pain without exertion, resolve with one dose of nitroglycerin. Patient was admitted without continued chest pain. CXR was performed and was negative for acute cardiopulmonary process. Troponin was trended and remained within normal limits. EKG without signs of ST or T wave changes. Laboratory work otherwise unremarkable, vitals stable. Patient did have pulse ox which was around 90%, was started on 2L NC, at bedside, removed oxygen satting around 94%, will get patient incentive spirometer. Patient without pain throughout admission. Cardiol sheba was consulted to examine patient. [facility] performed 09/2017 with patent stent to the pLAD, otherwise mild CAD, RAKAN at that time was 60-65%. Recommended increase in Imdur to 60 mg daily and outpatient follow up, which will be setup, no further testing inpatient recommended. Chronic conditions treated. Outpatient follow up discussed with patient, she is in agreement with PCP follow up in 5-7 days and cardiology follow up. Patient agrees to strict return precautions. Did write prescription for Imdur 60 mg due to increase. Discharge conditional to oxygen requirement, will continue to wean and promote incentive spirometry. Discharge discussed with: patient, family - Time Spent with Patient Total time spent providing and/or coordinating discharge services: Greater than 30 minutes - Discharge Medications Prescriptions: Isosorbide MONOnitrate (24 HR) [Imdur] 60 mg PO DAILY 30 Days #60 tab.er.24h Home Medications: Albuterol Sulfate [Ventolin Hfa] 2 puff IH Q6H 10/09/17 [History] Aspirin [Lo-Dose Aspirin EC] 81 mg PO DAILY 10/09/17 [History] Furosemide [Lasix] 40 mg PO DAILY 10/09/17 [History] Gabapentin [Neurontin] 300 mg PO BID 10/09/17 [History] Insulin Regular, Human [Humulin R U-500 Kwikpen] 0 unit SQ BID 10/09/17 [History] Levothyroxine [Synthroid] 50 mcg PO DAILY 10/09/17 [History] Omeprazole [PriLOSEC] 20 mg PO DAILY 10/09/17 [History] Oxybutynin [Ditropan] 5 mg PO BID 10/09/17 [History] PARoxetine HCl [Paroxetine HCl] 40 mg PO DAILY 10/09/17 [History] Triamterene/HCTZ 37.5/25mg [Dyazide] 1 each PO DAILY 10/09/17 [History] metFORMIN [Glucophage] 1,000 mg PO DAILY 10/09/17 [History] Atorvastatin [Lipitor] 40 mg PO HS tablet 10/10/17 [Rx] Metoprolol [Lopressor] 25 mg PO BID tablet 10/10/17 [Rx] Mv,Fe,Min/Lutein [A Thru Z [employer] Tablet] 1 tab PO DAILY 01/29/18 [History] Nitroglycerin [Nitrostat] 0.4 mg SL Q5M PRN 01/29/18 [History] Isosorbide MONOnitrate (24 HR) [Imdur] 60 mg PO DAILY 30 Days #60 tab.er.24h 01/30/18 [Rx] Allergies/Adverse Reactions: Allergy/AdvReac Type Severity Reaction Status Date / Time No Known Allergies Allergy Verified 03/15/15 18:18 Date of admission: 01/29/18 22:50 Primary care physician: Polina Blake CNP Consults: 01/30/18 03:00 Consult to Cardiology [CONS] Routine Comment: Consulting Provider: Cardiology Rosamaria Reason for Consult: CAD; recurrent chest pain; recent [facility] Call Completed: No Discharging clinician: Sadia Marquez Anticipated date of discharge: 01/30/18 - Constitutional Vitals: Temp Pulse Resp BP Pulse Ox 97.8 F 74 16 135/81 92 01/30/18 12:13 01/30/18 15:26 01/30/18 10:38 01/30/18 15:26 01/30/18 15:26 General appearance: Present: cooperative, A&O X 3, pleasant, no acute distress, answers questions appropriately Exam: . - Head Head exam: Present: atraumatic, normocephalic - Neck Neck exam general surgery: Present: full ROM. Absent: tenderness - Respiratory Respiratory exam: Present: CTAB. Absent: prolonged expiratory phase - Cardiovascular Cardiovascular exam: Present: RRR. Absent: gallop, rubs - GI/Abdominal GI/Abdominal exam: Present: tenderness (to the midepigastric region), no peritoneal signs. Absent: diminished bowel sounds, guarding, hypoactive bowel sounds - Extremities Exam Extremities exam: Present: normal capillary refill, normal inspection, radial pulses palpable and symmetrical. Absent: calf tenderness, pedal edema, tender ness - Neurological Exam Neurological exam: Present: alert, oriented X3 - Skin Skin exam: Absent: diaphoretic, pallor, rash - Patient Status Disposition: Home, Self-Care Condition: Good Overall status at discharge: patient is back to baseline - Discharge Instructions Instructions: Myocardial Infarction (DC), Chest Pain (DC), Urinary Tract Infection in Women (DC), Diabetes Mellitus Type 2 in Adults (DC), Chronic Hypertension (DC) Follow Up With: Polina Blake CNP [Primary Care Provider] - - Diet and Activity Activity: increase activity as tolerated Diet: diabetic diet <Ghanem,Rachael Rheem - Last Filed: 01/30/18 21:57> Orders not resulted at time of discharge: Pending orders 01/30/18 06:00 ECG 12 lead ECG [ECG] AM 0600 Date of Encounter: 01/30/18 - Discharge Diagnosis (1) CAD (coronary artery disease) Status: Chronic Qualifiers: Coronary Disease-Associated Artery/Lesion type: [place] artery [place] vs. transplanted heart: [place] heart Associated angina: with stable angina Qualified Code(s): I25.118 - Atherosclerotic heart disease of [place] coronary artery with other forms of angina pectoris (2) DVT prophylaxis Status: Acute (3) Chest pain Status: Acute Qualifiers: Chest pain type: unspecified Qualified Code(s): R07.9 - Chest pain, unspecified (4) IDDM (insulin dependent diabetes mellitus) Status: Chronic Hospital course: Ms. Malcolm is a 67 year old female - Time Spent with Patient Total time spent providing and/or coordinating discharge services: Date of admission: 01/29/18 22:50 Primary care physician: Polina Blake CNP Consults: 01/30/18 03:00 Consult to Cardiology [CONS] Routine Comment: Consulting Provider: Cardiology Rosamaria Reason for Consult: CAD; recurrent chest pain; recent [facility] Call Completed: No - Constitutional Vitals: Temp Pulse Resp BP Pulse Ox 97.8 F 74 16 135/81 92 01/30/18 12:13 01/30/18 15:26 01/30/18 16:14 01/30/18 15:26 01/30/18 16:14 - Attending Attestation I saw evaluated and examined this patient and my medical decision-making was reviewed with the Resident Physician. I agree with the documented findings, disposition and treatment plan as described except to any changes set forth below. We independently had [id number] contact with the patient.
--- NOTE | 2018-01-30 16:52 | Electrocardiograph Report ---
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
[2018-01-31] MEDS ORDERED: Isosorbide MONOnitrate (24 HR) 30 MG TAB.ER.24H PO SCH (09:00)
== END 2018-01-30 18:31 | disposition home or self-care (01) ==
LOC: EMEROOARM 21:17 → 2NENU 21:17 → SUATTDRO 22:50 → 2NENU 23:08
PROVIDERS: ADMIT Pediatrics; ATTEND Student in an Organized Health Care Education/Training Program

== ENCOUNTER 2020-04-04 13:13 | Inpatient (IN) ==
[2020-04-04 14:25] LABS: INR 1.1; Prothrombin Time 12.8 Seconds (9.4-12.1)
[2020-04-04 14:26] LABS: Eosinophils # 0.1 K/mcL (0.0-0.6); Hematocrit 40.1 % (35.3-44.9); Hemoglobin 13.3 g/dL (11.5-15.4); Mean Corpuscular HGB Conc 33.2 g/dL (31.6-35.5); Mean Corpuscular Hemoglobin 30.9 pg (28.0-33.3); Mean Corpuscular Volume 93.3 fL (83.0-100.0); Mean Platelet Volume 9.7 fL (9.4-12.4); Platelet Count 301 K/mcL (140-400); Red Cell Distribution Width 12.5 % (11.5-14.5); White Blood Count 5.9 K/mcL (4.3-11.1)
[2020-04-04 14:27] LABS: Activated Partial Thrombo Time 32.2 Seconds (26.0-36.0)
[2020-04-04] MEDS ORDERED: cefTRIAXone 1,000 MG in Water for inj. (sterile) 10 ML IVP ONE (14:28)
[2020-04-04] MEDS ORDERED: Azithromycin 500 MG in 0.9 % Sodium Chloride 250 ML IVPB ONE (14:28)
[2020-04-04 14:30] LABS: Fibrinogen > 1000 mg/dL (169-393)
[2020-04-04 14:45] LABS: Alanine Aminotransferase 12 Units/L (7-52); Albumin 3.5 g/dL (3.5-5.7); Albumin/Globulin Ratio 0.7 (1.1-2.2); Alkaline Phosphatase 59 Units/L (34-104); Aspartate Amino Transferase 15 Units/L (13-39); BUN/Creatinine Ratio 13 (6-26); Bilirubin,Direct 0.1 mg/dL (0.0-0.2); Bilirubin,Indirect 0.8 mg/dL (0.0-1.0); Bilirubin,Total 0.9 mg/dL (0.3-1.0); Blood Urea Nitrogen 12 mg/dL (8-23); C-Reactive Protein 108 mg/L (Less than 10); Calcium 9.1 mg/dL (8.6-10.3); Carbon Dioxide 27 mEq/L (23-29); Chloride 96 mEq/L (98-107); Globulin 4.7 g/dL (2.4-3.5); Glucose 362 mg/dL (70-105); Lactate Dehydrogenase 257 Units/L (140-271); Magnesium 1.5 mg/dL (1.6-2.6); Osmolality,Calculated 292 (280-300); Phosphorous 2.5 mg/dL (2.7-4.5); Sodium 134 mEq/L (136-145); Total Protein 8.2 g/dL (6.4-8.9); eGFR For African Americans > 60 (> 60); eGFR For Non-African Americans > 60 (> 60)
[2020-04-04 14:46] LABS: Troponin I < 0.03 ng/mL (< 0.04)
[2020-04-04 14:54] LABS: Lymphocytes # 0.6 K/mcL (0.6-4.6); Monocytes # 0.4 K/mcL (0.0-1.3); Neutrophils # 4.8 K/mcL (1.6-8.9); Platelet Estimate Normal (Normal); Reactive Lymphocytes Present (Not Present); Toxic Granulation Present (Not Present)
[2020-04-04 15:05] LABS: Ferritin 240 ng/mL (10-120)
[2020-04-04 15:13] LABS: Adenovirus Not Detected (Not Detect); Bordetella Pertussis Not Detected (Not Detect); Chlamydophila pneumoniae Not Detected (Not Detect); Coronavirus 229E Not Detected (Not Detect); Coronavirus HKU1 Not Detected (Not Detect); Coronavirus NL63 Not Detected (Not Detect); Coronavirus OC43 Not Detected (Not Detect); Human Metapneumovirus Not Detected (Not Detect); Human Rhinovirus/Enterovirus Not Detected (Not Detect); Influenza A Subtype 2009 H1 Not Detected (Not Detect); Influenza B Not Detected (Not Detect); Mycoplasma pneumoniae Not Detected (Not Detect); Parainfluenza Virus 1 Not Detected (Not Detect); Parainfluenza Virus 2 Not Detected (Not Detect); Parainfluenza Virus 3 Not Detected (Not Detect); Parainfluenza Virus 4 Not Detected (Not Detect); Respiratory Syncytial Virus Not Detected (Not Detect)
[2020-04-04 15:14] LABS: SARS-CoV-2 DETECTED (Not Detect)
[2020-04-04 15:23] LABS: D-Dimer 1710 ng/mLFEU (0-500)
[2020-04-04] MEDS ORDERED: Naloxone 0.4 MG/ML INJ IVP PRN (15:54)
[2020-04-04] MEDS ORDERED: Acetaminophen 325 MG TABLET PO PRN (15:54)
[2020-04-04] MEDS ORDERED: Ondansetron 4 MG/2 ML VIAL IVP PRN (15:54)
[2020-04-04] MEDS ORDERED: Dextrose Gel 15 GM/37.5 ML TUBE PO PRN ×2 (15:56)
[2020-04-04] MEDS ORDERED: *HR* Dextrose 50 % in Water (Vial) 50 ML VIAL IVP PRN (15:56)
[2020-04-04] MEDS ORDERED: D5% in Water 1,000 ML IVC PRN (15:56)
[2020-04-04] MEDS ORDERED: Azithromycin 500 MG in 0.9 % Sodium Chloride 250 ML IVPB SCH (16:00)
[2020-04-04] MEDS ORDERED: Insulin LISPRO 300 UNITS/3 ML VIAL SUBQ SCH ×3 (16:30→21:00)
[2020-04-04] MEDS: Insulin LISPRO 300 UNITS/3 ML VIAL SUBQ SCH (17:27)
[2020-04-04] MEDS ORDERED: Insulin DETEMIR 100 UNIT/ML X5UNITS SUBQ SCH (21:00)
[2020-04-04] MEDS: Gabapentin 300 MG CAPSULE PO SCH (21:19)
[2020-04-05 05:46] LABS: Basophils % 0.2 %; Hematocrit 36.3 % (35.3-44.9); Hemoglobin 12.3 g/dL (11.5-15.4); Immature Granulocytes % 0.8 % (0-4); Lymphocytes # 0.7 K/mcL (0.6-4.6); Lymphocytes % 12.2 %; Mean Corpuscular HGB Conc 33.9 g/dL (31.6-35.5); Mean Corpuscular Hemoglobin 30.8 pg (28.0-33.3); Mean Corpuscular Volume 90.8 fL (83.0-100.0); Mean Platelet Volume 9.7 fL (9.4-12.4); Monocytes # 0.2 K/mcL (0.0-1.3); Monocytes % 2.5 %; Platelet Count 303 K/mcL (140-400); Red Cell Distribution Width 12.2 % (11.5-14.5); Segmented Neutrophils % 84.3 %; White Blood Count 5.9 K/mcL (4.3-11.1)
[2020-04-05] MEDS ORDERED: *HR* Enoxaparin 30 MG/0.3 ML SYRINGE SQ SCH (06:00)
[2020-04-05 06:08] LABS: Alanine Aminotransferase 12 Units/L (7-52); Albumin 3.4 g/dL (3.5-5.7); Albumin/Globulin Ratio 0.8 (1.1-2.2); Alkaline Phosphatase 64 Units/L (34-104); Aspartate Amino Transferase 15 Units/L (13-39); BUN/Creatinine Ratio 18 (6-26); Bilirubin,Total 0.6 mg/dL (0.3-1.0); Blood Urea Nitrogen 19 mg/dL (8-23); Calcium 9.3 mg/dL (8.6-10.3); Carbon Dioxide 23 mEq/L (23-29); Chloride 95 mEq/L (98-107); Globulin 4.5 g/dL (2.4-3.5); Glucose 530 mg/dL (70-105); Osmolality,Calculated 292 (280-300); Potassium 4.7 mEq/L (3.5-5.1); Sodium 128 mEq/L (136-145); Total Protein 7.9 g/dL (6.4-8.9); eGFR For African Americans > 60 (> 60); eGFR For Non-African Americans 53 (> 60)
[2020-04-05 06:29] LABS: Platelet Estimate Normal (Normal)
[2020-04-05] MEDS ORDERED: Insulin Human Regular 8 UNIT in 0.9 % Sodium Chloride 10 ML IV ONE (06:47)
[2020-04-05] MEDS: Insulin LISPRO 300 UNITS/3 ML VIAL SUBQ SCH ×3 (07:27→16:09)
[2020-04-05] MEDS ORDERED: Dextrose Gel 15 GM/37.5 ML TUBE PO PRN ×2 (07:36)
[2020-04-05] MEDS ORDERED: *HR* Dextrose 50 % in Water (Vial) 50 ML VIAL IVP PRN (07:36)
[2020-04-05] MEDS ORDERED: D5% in Water 1,000 ML IVC PRN (07:36)
[2020-04-05] MEDS ORDERED: *HR* Heparin 5,000 UNIT/ML VIAL IVP PRN ×2 (07:39)
[2020-04-05] MEDS ORDERED: *HR* Heparin 5,000 UNIT/ML VIAL IVP ONE (07:39)
[2020-04-05] MEDS: Furosemide 40 MG/4 ML VIAL IVP SCH ×2 (08:26→20:30)
[2020-04-05] MEDS: Gabapentin 300 MG CAPSULE PO SCH ×2 (08:28→20:30)
[2020-04-05] MEDS: Aspirin Enteric Coated 81 MG Tablet PO SCH (08:28)
[2020-04-05] MEDS: Loratadine 10 MG TABLET PO SCH (08:28)
[2020-04-05] MEDS: Heparin 25,000UNIT/250ML 1/2NS 25,000 UNIT/250 ML IV.SOLN IVC SCH (08:30)
[2020-04-05] MEDS: Pantoprazole 40 MG VIAL IVP SCH (08:31)
[2020-04-05 08:43] LABS: Hematocrit 37.7 % (35.3-44.9); Hemoglobin 12.7 g/dL (11.5-15.4); Mean Corpuscular HGB Conc 33.7 g/dL (31.6-35.5); Mean Corpuscular Hemoglobin 30.4 pg (28.0-33.3); Mean Corpuscular Volume 90.2 fL (83.0-100.0); Mean Platelet Volume 9.6 fL (9.4-12.4); Platelet Count 337 K/mcL (140-400); Red Blood Count 4.18 M/mcL (3.82-4.97); Red Cell Distribution Width 12.2 % (11.5-14.5); White Blood Count 7.7 K/mcL (4.3-11.1)
[2020-04-05 08:46] LABS: Heparin anti-factor XA UFH 0.18 IU/mL (0.30-0.70); INR 1.1; Prothrombin Time 12.3 Seconds (9.4-12.1)
[2020-04-05 08:49] LABS: Activated Partial Thrombo Time 32.9 Seconds (26.0-36.0)
[2020-04-05] MEDS ORDERED: Furosemide 20 MG TABLET PO SCH (09:00)
[2020-04-05] MEDS ORDERED: Insulin DETEMIR 100 UNIT/ML X5UNITS SUBQ SCH ×2 (09:00→21:00)
[2020-04-05] MEDS ORDERED: cefTRIAXone 1,000 MG in Water for inj. (sterile) 10 ML IVP SCH (09:00)
[2020-04-05] MEDS: PARoxetine 20 MG TABLET PO SCH (11:55)
[2020-04-05] MEDS ORDERED: Azithromycin 500 MG in 0.9 % Sodium Chloride 250 ML IVPB SCH (15:00)
[2020-04-05] MEDS ORDERED: Insulin DETEMIR 100 UNIT/ML X5UNITS SUBQ ONE (17:35)
[2020-04-05] MEDS: Ipratropium 1 PUFF INHALER IH SCH ×2 (19:57→23:13)
[2020-04-06] MEDS: Ipratropium 1 PUFF INHALER IH SCH ×6 (04:07→23:08)
[2020-04-06 04:58] LABS: Basophils % 0.3 %; Hematocrit 35.4 % (35.3-44.9); Hemoglobin 11.9 g/dL (11.5-15.4); Immature Granulocytes % 1.1 % (0-4); Lymphocytes # 1.2 K/mcL (0.6-4.6); Lymphocytes % 9.7 %; Mean Corpuscular HGB Conc 33.6 g/dL (31.6-35.5); Mean Corpuscular Hemoglobin 30.4 pg (28.0-33.3); Mean Corpuscular Volume 90.3 fL (83.0-100.0); Mean Platelet Volume 10.5 fL (9.4-12.4); Monocytes # 0.7 K/mcL (0.0-1.3); Monocytes % 5.7 %; Neutrophils # 9.9 K/mcL (1.6-8.9); Platelet Count 385 K/mcL (140-400); Red Blood Count 3.92 M/mcL (3.82-4.97); Red Cell Distribution Width 12.2 % (11.5-14.5); Segmented Neutrophils % 83.2 %
[2020-04-06 04:59] LABS: White Blood Count 11.9 K/mcL (4.3-11.1)
[2020-04-06 05:04] LABS: Fibrinogen 582 mg/dL (169-393)
[2020-04-06 05:13] LABS: D-Dimer 2273 ng/mLFEU (0-500)
[2020-04-06 05:17] LABS: Calcium 9.8 mg/dL (8.6-10.3); Magnesium 1.9 mg/dL (1.6-2.6); Potassium 4.6 mEq/L (3.5-5.1)
[2020-04-06 07:29] LABS: Estimated Average Glucose 289 mg/dl; Hemoglobin A1C 11.7 %
[2020-04-06] MEDS: Heparin 25,000UNIT/250ML 1/2NS 25,000 UNIT/250 ML IV.SOLN IVC SCH (09:14)
[2020-04-06] MEDS: Aspirin Enteric Coated 81 MG Tablet PO SCH (09:40)
[2020-04-06] MEDS: Gabapentin 300 MG CAPSULE PO SCH ×2 (09:40→21:39)
[2020-04-06] MEDS: Loratadine 10 MG TABLET PO SCH (09:40)
[2020-04-06] MEDS: PARoxetine 20 MG TABLET PO SCH (09:40)
[2020-04-06] MEDS: Isosorbide MONOnitrate (24 HR) 60 MG TAB.ER.24H PO SCH (09:41)
[2020-04-06] MEDS: Insulin DETEMIR 100 UNIT/ML X5UNITS SUBQ SCH ×2 (09:41→21:40)
[2020-04-06] MEDS: Pantoprazole 40 MG VIAL IVP SCH (09:41)
[2020-04-06] MEDS: Furosemide 40 MG/4 ML VIAL IVP SCH ×2 (09:42→21:38)
[2020-04-06] MEDS: Insulin LISPRO 300 UNITS/3 ML VIAL SUBQ SCH ×6 (09:44→18:07)
[2020-04-06] MEDS ORDERED: Insulin LISPRO 300 UNITS/3 ML VIAL SUBQ STA (12:21)
[2020-04-07 02:58] LABS: Basophils % 0.2 %; Hematocrit 36.8 % (35.3-44.9); Hemoglobin 12.2 g/dL (11.5-15.4); Immature Granulocytes % 1.2 % (0-4); Lymphocytes # 1.2 K/mcL (0.6-4.6); Lymphocytes % 12.6 %; Mean Corpuscular HGB Conc 33.2 g/dL (31.6-35.5); Mean Corpuscular Hemoglobin 30.7 pg (28.0-33.3); Mean Corpuscular Volume 92.5 fL (83.0-100.0); Monocytes # 0.6 K/mcL (0.0-1.3); Monocytes % 6.2 %; Neutrophils # 7.8 K/mcL (1.6-8.9); Platelet Count 415 K/mcL (140-400); Red Blood Count 3.98 M/mcL (3.82-4.97); Red Cell Distribution Width 12.4 % (11.5-14.5); Segmented Neutrophils % 79.8 %; White Blood Count 9.8 K/mcL (4.3-11.1)
[2020-04-07 03:06] LABS: D-Dimer 1664 ng/mLFEU (0-500); Fibrinogen 458 mg/dL (169-393)
[2020-04-07 03:18] LABS: Magnesium 1.8 mg/dL (1.6-2.6); Potassium 4.2 mEq/L (3.5-5.1)
[2020-04-07] MEDS: Ipratropium 1 PUFF INHALER IH SCH ×6 (03:50→23:56)
[2020-04-07] MEDS: Heparin 25,000UNIT/250ML 1/2NS 25,000 UNIT/250 ML IV.SOLN IVC SCH (03:50)
[2020-04-07] MEDS ORDERED: 0.9 % Sodium Chloride 500 ML IVC SCH (07:30)
[2020-04-07] MEDS: PARoxetine 20 MG TABLET PO SCH (07:57)
[2020-04-07] MEDS: Aspirin Enteric Coated 81 MG Tablet PO SCH (07:57)
[2020-04-07] MEDS: Loratadine 10 MG TABLET PO SCH (07:57)
[2020-04-07] MEDS: Isosorbide MONOnitrate (24 HR) 60 MG TAB.ER.24H PO SCH (07:57)
[2020-04-07] MEDS: Gabapentin 300 MG CAPSULE PO SCH ×2 (07:57→20:13)
[2020-04-07] MEDS: Furosemide 40 MG/4 ML VIAL IVP SCH (07:58)
[2020-04-07] MEDS: Insulin DETEMIR 100 UNIT/ML X5UNITS SUBQ SCH ×2 (07:59→20:13)
[2020-04-07] MEDS: Pantoprazole 40 MG VIAL IVP SCH (07:59)
[2020-04-07] MEDS: Insulin LISPRO 300 UNITS/3 ML VIAL SUBQ SCH ×8 (08:00→23:55)
[2020-04-07] MEDS ORDERED: Insulin LISPRO 300 UNITS/3 ML VIAL SUBQ SCH (21:15)
[2020-04-08] MEDS: Insulin LISPRO 300 UNITS/3 ML VIAL SUBQ SCH ×12 (01:57→20:25)
[2020-04-08] MEDS: Ipratropium 1 PUFF INHALER IH SCH ×6 (03:50→23:35)
[2020-04-08] MEDS: *HR* Enoxaparin 40 MG/0.4 ML SYRINGE SQ SCH (06:04)
[2020-04-08 06:16] LABS: Hematocrit 36.6 % (35.3-44.9); Hemoglobin 12.3 g/dL (11.5-15.4); Mean Corpuscular HGB Conc 33.6 g/dL (31.6-35.5); Mean Corpuscular Hemoglobin 30.6 pg (28.0-33.3); Mean Platelet Volume 9.9 fL (9.4-12.4); Platelet Count 407 K/mcL (140-400); Red Blood Count 4.02 M/mcL (3.82-4.97); Red Cell Distribution Width 12.3 % (11.5-14.5); White Blood Count 10.9 K/mcL (4.3-11.1)
[2020-04-08 06:35] LABS: Calcium 10.2 mg/dL (8.6-10.3)
[2020-04-08] MEDS: Aspirin Enteric Coated 81 MG Tablet PO SCH (08:17)
[2020-04-08] MEDS: Loratadine 10 MG TABLET PO SCH (08:17)
[2020-04-08] MEDS: PARoxetine 20 MG TABLET PO SCH (08:17)
[2020-04-08] MEDS: Insulin DETEMIR 100 UNIT/ML X5UNITS SUBQ SCH (08:17)
[2020-04-08] MEDS: Isosorbide MONOnitrate (24 HR) 60 MG TAB.ER.24H PO SCH (08:17)
[2020-04-08] MEDS: Gabapentin 300 MG CAPSULE PO SCH ×2 (08:17→20:11)
[2020-04-08] MEDS ORDERED: Insulin DETEMIR 100 UNIT/ML X5UNITS SUBQ ONE (17:00)
[2020-04-08] MEDS ORDERED: Insulin LISPRO 300 UNITS/3 ML VIAL SUBQ SCH (17:00)
[2020-04-08] MEDS ORDERED: Insulin DETEMIR 100 UNIT/ML X5UNITS SUBQ SCH (21:00)
[2020-04-09] MEDS: Insulin LISPRO 300 UNITS/3 ML VIAL SUBQ SCH ×8 (00:15→17:20)
[2020-04-09] MEDS: Ipratropium 1 PUFF INHALER IH SCH ×4 (03:36→15:53)
[2020-04-09] MEDS: *HR* Enoxaparin 40 MG/0.4 ML SYRINGE SQ SCH (06:21)
[2020-04-09 06:24] LABS: Basophils % 0.4 %; Eosinophils % 0.1 %; Hematocrit 38.9 % (35.3-44.9); Lymphocytes # 1.6 K/mcL (0.6-4.6); Lymphocytes % 15.2 %; Mean Corpuscular HGB Conc 33.4 g/dL (31.6-35.5); Mean Corpuscular Volume 92.8 fL (83.0-100.0); Mean Platelet Volume 9.5 fL (9.4-12.4); Monocytes # 0.8 K/mcL (0.0-1.3); Neutrophils # 7.7 K/mcL (1.6-8.9); Platelet Count 414 K/mcL (140-400); Red Blood Count 4.19 M/mcL (3.82-4.97); Red Cell Distribution Width 12.6 % (11.5-14.5); Segmented Neutrophils % 74.3 %; White Blood Count 10.3 K/mcL (4.3-11.1)
[2020-04-09 06:26] LABS: Fibrinogen 384 mg/dL (169-393)
[2020-04-09 06:30] LABS: D-Dimer 1332 ng/mLFEU (0-500)
[2020-04-09 06:36] LABS: BUN/Creatinine Ratio 33 (6-26); Blood Urea Nitrogen 35 mg/dL (8-23); Calcium 9.9 mg/dL (8.6-10.3); Carbon Dioxide 29 mEq/L (23-29); Chloride 100 mEq/L (98-107); Glucose 362 mg/dL (70-105); Osmolality,Calculated 301 (280-300); Potassium 4.5 mEq/L (3.5-5.1); Sodium 134 mEq/L (136-145); eGFR For African Americans > 60 (> 60); eGFR For Non-African Americans 51 (> 60)
[2020-04-09] MEDS ORDERED: Insulin DETEMIR 100 UNIT/ML X5UNITS SUBQ SCH ×2 (09:00→21:00)
[2020-04-09] MEDS: Isosorbide MONOnitrate (24 HR) 60 MG TAB.ER.24H PO SCH (09:34)
[2020-04-09] MEDS: Gabapentin 300 MG CAPSULE PO SCH (09:34)
[2020-04-09] MEDS: Aspirin Enteric Coated 81 MG Tablet PO SCH (09:34)
[2020-04-09] MEDS: PARoxetine 20 MG TABLET PO SCH (09:34)
[2020-04-09] MEDS: Loratadine 10 MG TABLET PO SCH (09:34)
[2020-04-09 17:40] VITALS: BP 137/84
== END 2020-04-09 19:20 | disposition home or self-care (01) | DRG 177 ==
LOC: 2NENU 13:13 → EMEROOARM 13:13 → SUATTDRO 15:24 → 2NENU 15:44 → SUATTDRO 04-05 13:26
PROVIDERS: ADMIT Internal Medicine; ATTEND General Practice